=== PATIENT | female | born 1955 | race American Indian/Alaskan Native ===

== ENCOUNTER 2017-12-26 18:33 | Emergency (ER) | payer BC, OTHER ==
[2017-12-26 19:26] VITALS: BP 151/97
[2017-12-26] MEDS ORDERED: TORADOL IM ONE (21:30)
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
[2017-12-26] MEDS ORDERED: ULTRAM ONE (21:51)
[2017-12-26] MEDS ORDERED: ULTRAM PO ONE (21:54)
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
== END 2017-12-26 22:28 | disposition home or self-care (01) ==
LOC: ED 18:33
DX: S16.1XXA Strain of muscle, fascia and tendon at neck level, initial encounter (principal); I10 Essential (primary) hypertension; V87.7XXA Person injured in collision between other specified motor vehicles (traffic), initial encounter; Y93.89 Activity, other specified; Y92.89 Other specified places as the place of occurrence of the external cause; Y99.8 Other external cause status
CPT/HCPCS: 72040; 99283; J1885

== ENCOUNTER 2019-08-01 17:47 | Emergency (ER) | payer BC, OTHER ==
[2019-08-01 19:23] LABS: Basophils # (Auto) 0.1 K/mm3 (0.0-0.1); Eosinophils # (Auto) 0.1 K/mm3 (0.0-0.4); Eosinophils % (Auto) 1.6 % (0.0-4.3); Hematocrit 40.7 % (30.3-42.9); Hemoglobin 13.4 gm/dl (10.1-14.3); Lymphocytes % (Auto) 51.8 % (13.4-35.0); Mean Corpuscular HGB Conc 33 % (30-34); Mean Corpuscular Volume 91 fl (79-97); Monocytes # (Auto) 0.6 K/mm3 (0.0-0.8); Monocytes % (Auto) 9.8 % (0.0-7.3); Platelet Count 188 K/mm3 (140-440); Red Blood Count 4.48 M/mm3 (3.65-5.03); Red Cell Distribution Width 12.5 % (13.2-15.2)
[2019-08-01] MEDS ORDERED: SODIUM CHLORIDE 0.9% 1000 ML IV SOLN IV ONE (19:38)
[2019-08-01] MEDS ORDERED: INSULIN REGULAR, HUMAN 100 UNITS/1 ML IV ONE ×3 (19:38→23:18)
[2019-08-01 19:45] LABS: Albumin 4.2 g/dL (3.9-5); Calcium 9.7 mg/dL (8.4-10.2)
[2019-08-01] MEDS ORDERED: ACETAMINOPHEN 500 MG TAB PO ONE (20:34)
[2019-08-01] MEDS ORDERED: ACETAMINOPHEN 500 MG TAB ONE (20:37)
--- NOTE | 2019-08-01 20:44 | Emergency Department Report ---
ED General Adult HPI - General Chief complaint: Hyperglycemia Stated complaint: ELEV BS Time Seen by Provider: 08/01/19 19:28 Source: patient Mode of arrival: Ambulatory Limitations: No Limitations - History of Present Illness Initial comments: 64 y.o. female with no past medical history presents after going to her primary care doctor she states he has been having generalized weakness, polyuria and polydipsia. Patient states that while in her PCPs office her blood sugar was checked and was greater than 500. Patient denies any nausea vomiting. Patient denies any chest pain or shortness of breath. Patient denies any syncopal events. Severity scale (0 -10): 0 - Related Data Home Medications Medication Instructions Recorded Confirmed Last Taken Lisinopril/Hydrochlorothiazide 1 tab PO DAILY 05/25/16 05/25/16 Unknown Previous Rx's Medication Instructions Recorded Last Taken Type Famotidine [Pepcid] 20 mg PO BID #30 tablet 05/26/16 Unknown Rx levoFLOXacin [Levaquin TAB] 500 mg PO QDAY #5 tablet 05/26/16 Unknown Rx Cyclobenzaprine [Flexeril] 10 mg PO BID PRN #20 tablet 12/26/17 Unknown Rx Menthol/Camphor [[place] 1 applicatio TP TID PRN #1 tube 12/26/17 Unknown Rx Ointment] Naproxen [Naprosyn] 500 mg PO BID PRN #30 tablet 12/26/17 Unknown Rx Allergies Allergy/AdvReac Type Severity Reaction Status Date / Time No Known Allergies Allergy Verified 05/25/16 08:49 ED Review of Systems ROS: Stated complaint: ELEV BS Other details as noted in HPI Constitutional: weakness Eyes: denies: eye pain, eye discharge, vision change ENT: denies: ear pain, throat pain Respiratory: denies: cough, shortness of breath, wheezing Cardiovascular: denies: chest pain, palpitations Endocrine: increased thirst, increased urine Gastrointestinal: denies: abdominal pain, nausea, diarrhea Genitourinary: denies: urgency, dysuria, discharge Musculoskeletal: denies: back pain, joint swelling, arthralgia Skin: denies: rash, lesions Neurological: denies: headache, weakness, paresthesias Psychiatric: denies: anxiety, depression Hematological/Lymphatic: denies: easy bleeding, easy bruising ED Past Medical Hx - Past Medical History Hx Hypertension: Yes Hx Congestive Heart Failure: No Hx Diabetes: No Hx Arthritis: Yes Hx Asthma: No Hx COPD: No Hx HIV: No Additional medical history: Heart Murmur - Surgical History Additional Surgical History: Right knee - Social History Smoking Status: Never Smoker Substance Use Type: None - Medications Home Medications: Home Medications Medication Instructions Recorded Confirmed Last Taken Type Lisinopril/Hydrochlorothiazide 1 tab PO DAILY 05/25/16 05/25/16 Unknown History Famotidine [Pepcid] 20 mg PO BID #30 tablet 05/26/16 Unknown Rx levoFLOXacin [Levaquin TAB] 500 mg PO QDAY #5 tablet 05/26/16 Unknown Rx Cyclobenzaprine [Flexeril] 10 mg PO BID PRN #20 tablet 12/26/17 Unknown Rx Menthol/Camphor [[employer] [place] 1 applicatio TP TID PRN #1 tube 12/26/17 Unknown Rx Ointment] Naproxen [Naprosyn] 500 mg PO BID PRN #30 tablet 12/26/17 Unknown Rx ED Physical Exam - General Limitations: No Limitations General appearance: alert, in no apparent distress - Head Head exam: Present: atraumatic, normocephalic - Eye Eye exam: Present: normal appearance - ENT ENT exam: Present: mucous membranes moist - Neck Neck exam: Present: normal inspection - Respiratory Respiratory exam: Present: normal lung sounds bilaterally. Absent: respiratory distress - Cardiovascular Cardiovascular Exam: Present: regular rate, normal rhythm. Absent: systolic murmur, diastolic murmur, rubs, gallop - GI/Abdominal GI/Abdominal exam: Present: soft, normal bowel sounds - Extremities Exam Extremities exam: Present: normal inspection - Back Exam Back exam: Present: normal inspection - Neurological Exam Neurological exam: Present: alert, oriented X3 - Psychiatric Psychiatric exam: Present: normal affect, normal mood - Skin Skin exam: Present: warm, dry, intact, normal color. Absent: rash ED Course Vital Signs 08/01/19 08/01/19 08/01/19 18:31 19:30 19:43 Temperature 98.1 F 98.3 F Pulse Rate 79 68 73 Respiratory 16 15 18 Rate Blood Pressure 148/98 Blood Pressure 132/86 [Right] O2 Sat by Pulse 98 100 100 Oximetry 08/01/19 08/01/19 08/01/19 19:45 20:01 20:15 Temperature Pulse Rate 71 72 73 Respiratory 13 14 22 Rate Blood Pressure 153/95 142/94 142/94 Blood Pressure [Right] O2 Sat by Pulse 98 99 99 Oximetry ED Medical Decision Making - Lab Data Result diagrams: 08/01/19 18:41 08/01/19 18:41 - Medical Decision Making Patient received 2 L of IV fluids while here in emergency department in addition to 10 units of IV insulin. Patient currently is not in DKA however with a glucose of greater than 800 we will admit to the hospitalist service for continued management and treatment. - Differential Diagnosis DKA; Dehydration; Electrolyte Abnormality; Critical care attestation.: If time is entered above; I have spent that time in minutes in the direct care of this critically ill patient, excluding procedure time. ED Disposition Clinical Impression: Diabetes mellitus with hyperglycemia, New onset type 2 diabetes mellitus Disposition: OP ADMIT IP TO THIS HOSP Is pt being admited?: Yes Does the pt Need Aspirin: No Condition: Stable Instructions: Diabetes Mellitus Type 2 in Adults (ED) Time of Disposition: 20:44
[2019-08-01] MEDS ORDERED: SODIUM CHLORIDE 0.9% 1000 ML 1,000 ML IV ONE (21:07)
[2019-08-01] MEDS ORDERED: SODIUM CHLORIDE 0.9% 500 ML 500 ML IV ONE (23:18)
[2019-08-02 06:36] VITALS: BP 138/78
== END 2019-08-02 00:30 | disposition admitted as inpatient to this hospital (09) ==
LOC: ED 17:47
DX: E11.65 Type 2 diabetes mellitus with hyperglycemia (principal); R35.8 Other polyuria; R63.1 Polydipsia; I10 Essential (primary) hypertension; M19.90 Unspecified osteoarthritis, unspecified site; Z79.899 Other long term (current) drug therapy; Z98.890 Other specified postprocedural states
CPT/HCPCS: 36415; 80053; 82805; 82962; 85025; 96361; 96374; 96376; 99283; J7030; J7040; J1815

== ENCOUNTER 2021-03-21 11:34 | Observation (INO) | payer BC ==
[2021-03-21] MEDS ORDERED: NITROGLYCERIN 2% OINT 1 GM TP ONE (11:53)
[2021-03-21] MEDS ORDERED: ASPIRIN 325 MG TAB PO ONE (11:53)
--- NOTE | 2021-03-21 12:00 | Emergency Department Report ---
HPI - General Chief Complaint: Chest Pain Time Seen by Provider: 03/21/21 11:41 - HPI HPI: MSE 7 The patient is a 65-year-old female present with a chief complaint of chest pain. The patient states she was awakened this morning at 03: 00 with left-side d squeezing chest pain that radiated to her left upper extremity. Patient states the pain is been intermittent in nature. Patient denies nausea/vomiting or diaphoresis with the pain when asked if she felt short of breath with it she states she does not know. The patient states her last stress test occurred 5-10 years ago and she has never had a cardiac catheterization ED Past Medical Hx - Past Medical History Previous Medical History?: Yes Hx Hypertension: Yes Hx Arthritis: Yes Additional medical history: Heart Murmur - Surgical History Past Surgical History?: Yes Additional Surgical History: Right knee - Family History Family history: no significant - Social History Smoking Status: Never Smoker Substance Use Type: None - Medications Home Medications: Home Medications Medication Instructions Recorded Confirmed Last Taken Type Lansoprazole [Prevacid] 30 mg PO DAILY 03/21/21 03/21/21 03/20/21 09:00 History Losartan [Cozaar] 100 mg PO QDAY 03/21/21 03/21/21 03/20/21 08:00 History ED Review of Systems ROS: Stated complaint: CHEST PAIN AND BODYACHES Other details as noted in HPI Constitutional: denies: diaphoresis Eyes: denies: eye pain ENT: denies: throat pain Respiratory: shortness of breath (?) Cardiovascular: chest pain Endocrine: no symptoms reported Gastrointestinal: denies: nausea, vomiting Genitourinary: denies: dysuria Musculoskeletal: denies: back pain Neurological: denies: headache Physical Exam - Physical Exam Vital Signs: Vital Signs 03/21/21 11:36 Temperature 97.8 F Pulse Rate 75 Respiratory 16 Rate Blood Pressure 171/101 [Left] O2 Sat by Pulse 99 Oximetry Physical Exam: GENERAL: The patient is well-developed well-nourished female lying on stretcher not appearing to be in acute distress. [] HEENT: Normocephalic. Atraumatic. Extraocular motions are intact. Patient has moist mucous membranes. NECK: Supple. Trachea midline CHEST/LUNGS: Clear to auscultation. There is no respiratory distress noted. HEART/CARDIOVASCULAR: Regular. There is no tachycardia. There is no gallop rub or murmur. ABDOMEN: Abdomen is soft, nontender. Patient has normal bowel sounds. There is no abdominal distention. SKIN: There is no rash. There is no edema. There is no diaphoresis. NEURO: The patient is awake, alert, and oriented. The patient is cooperative. The patient has no focal neurologic deficits. The patient has normal speech. GCS 15 MUSCULOSKELETAL: There is no evidence of acute injury. ED Course Vital Signs 03/21/21 11:36 Temperature 97.8 F Pulse Rate 75 Respiratory 16 Rate Blood Pressure 171/101 [Left] O2 Sat by Pulse 99 Oximetry ED Medical Decision Making - Lab Data Result diagrams: 03/21/21 12:08 03/21/21 12:08 Laboratory Tests 03/21/21 03/21/21 12:08 12:08 WBC 4.6 RBC 4.41 Hgb 13.4 Hct 40.7 MCV 93 MCH 30 MCHC 33 RDW 12.8 L Plt Count 213 Lymph % (Auto) Flying Teacher Seg Neutrophils % Flying Teacher Sodium 137 Potassium 4.5 Chloride 101.2 Carbon Dioxide 24 Anion Gap 16 BUN 11 Creatinine 0.8 Estimated GFR > 60 BUN/Creatinine Ratio 14 Glucose 103 H Calcium 9.5 Total Creatine Kinase 155 H CK-MB (CK-2) 3.0 CK-MB (CK-2) Rel Index 1.9 Troponin T < 0.010 NT-Pro-B Natriuret Pep 101.1 - EKG Data -: EKG Interpreted by Me EKG shows normal: sinus rhythm, axis Rate: normal - EKG Data When compared to previous EKG there are: previous EKG unavailable Interpretation: other (No ischemic changes seen) - Radiology Data Radiology results: report reviewed (Chest x-ray), image reviewed (Chest x-ray) interpreted by me: Chest x-ray-no definite focal infiltrates, no pneumothorax [facility] [address] [place] [address] XRay Report Signed Patient: MICHAEL SERNA MR#: [id number] : 1955 Acct:[id number] Age/Sex: 65 / F ADM Date: 03/21/21 Loc: ED Attending Dr: Ordering Physician: NO SYKES MD Date of Service: 03/21/21 Procedure(s): XR chest routine 2V Accession Number(s): [id number] cc: NO SYKES MD Fluoro Time In Minutes: XR chest routine 2V INDICATION / CLINICAL INFORMATION: chest pain COMPARISON: May 25, 2016 FINDINGS: SUPPORT DEVICES: None. HEART / MEDIASTINUM: No significant abnormality. LUNGS / PLEURA: Lungs are clear. Costophrenic sulci are sharp. No pneumothorax. ADDITIONAL FINDINGS: No significant additional findings. IMPRESSION: 1. No acute findings. Signer Name: Lux Justin MD Signed: 03/21/2021 12:24 PM Workstation Name: [id number] Transcribed By: CS Dictated By: Lux Justin MD Electronically Authenticated By: Lux Justin MD Signed Date/Time: 03/21/211223 DD/ 23 TD /TT: Print - Differential Diagnosis ACS, pericarditis, GERD Critical care attestation.: If time is entered above; I have spent that time in minutes in the direct care of this critically ill patient, excluding procedure time. ED Disposition Clinical Impression: Chest pain Disposition: ADMITTED INPATIENT Is pt being admited?: Yes Does the pt Need Aspirin: Yes Condition: Stable Instructions: Nonspecific Chest Pain, Adult Time of Disposition: 13:37 (Hospitalist called (Dr. Reese)) Heart Score - HEART Score History: Highly suspicious EKG: Normal Age: 45-65 Risk factors: 1-2 risk factors Troponin: < normal limit HEART Score: 4 - EKG Read Time Time EKG Completed: 11:44 EKG Read Time: 11:52
--- NOTE | 2021-03-21 12:28 | XRay Report ---
XR chest routine 2V INDICATION / CLINICAL INFORMATION: chest pain COMPARISON: May 25, 2016 FINDINGS: SUPPORT DEVICES: None. HEART / MEDIASTINUM: No significant abnormality. LUNGS / PLEURA: Lungs are clear. Costophrenic sulci are sharp. No pneumothorax. ADDITIONAL FINDINGS: No significant additional findings. IMPRESSION: 1. No acute findings. Signer Name: Lux Justin MD Signed: 03/21/2021 12:24 PM Workstation Name: [id number]
[2021-03-21 13:16] LABS: Hematocrit 40.7 % (30.3-42.9); Hemoglobin 13.4 gm/dl (10.1-14.3); Mean Corpuscular HGB Conc 33 % (30-34); Mean Corpuscular Volume 93 fl (79-97); Platelet Count 213 K/mm3 (140-440); Red Blood Count 4.41 M/mm3 (3.65-5.03); Red Cell Distribution Width 12.8 % (13.2-15.2)
[2021-03-21 13:28] LABS: BUN/Creatinine Ratio 14; Blood Urea Nitrogen 11 mg/dL (7-17); Calcium 9.5 mg/dL (8.4-10.2); Hemolysis Index 121
[2021-03-21 19:29] LABS: Band Neutrophils # (Manual) 0.2 K/mm3; Platelet Estimate Consistent w Auto; Total Cells Counted 100
[2021-03-21] MEDS ORDERED: HYDROmorphone 1 MG/1 ML INJ IV PRN (20:31)
[2021-03-21] MEDS ORDERED: oxyCODONE /ACETAMINOPHEN 5-325MG TAB PO PRN (20:31)
[2021-03-21] MEDS ORDERED: ONDANSETRON 4 MG/2 ML INJ IV PRN (20:31)
--- NOTE | 2021-03-21 20:31 | History and Physical Report ---
History of Present Illness Date of examination: 03/21/21 Date of admission: 03/21/21 13:39 Chief complaint: Chest pain since a.m. History of present illness: 55-year-old female with history of hypertension, GERD and hyperlipidemia comes in for chest pain since 3 AM. Chest pain woke her up. Denies nausea vomiting or paralysis. No radiation of the chest pain. Chest pain is about 7 on a scale of 1-10 is intermittent. Patient states that he had a stress test about 10 years ago. But never had stents or cardiac catheterization. Patient lying comfortably during my examination. Answering questions appropriately. Good historian. No fever or chills. Patient is vaccinated against Covid. - Past Medical History Previous Medical History?: Yes --Hypertension: Yes --Arthritis: Yes --Additional medical history: Heart Murmur - Surgical History ==Past Surgical History?: Yes -- Right knee - Family History --no significant - Social History --Smoking Status: Never Smoker --Substance Use Type: None - Medications Home Medications: Home Medications Medication Instructions Recorded Confirmed Last Taken Type Lansoprazole [Prevacid] 30 mg PO DAILY 03/21/21 03/21/21 03/20/21 09:00 History Losartan [Cozaar] 100 mg PO QDAY 03/21/21 03/21/21 03/20/21 08:00 History Review of Systems ROS: Stated complaint: CHEST PAIN AND BODYACHES Other details as noted in HPI Constitutional: denies: diaphoresis Eyes: denies: eye pain ENT: denies: throat pain Respiratory: shortness of breath (?) Cardiovascular: chest pain Endocrine: no symptoms reported Gastrointestinal: denies: nausea, vomiting Genitourinary: denies: dysuria Musculoskeletal: denies: back pain Neurological: denies: headache Medications and Allergies Allergies Allergy/AdvReac Type Severity Reaction Status Date / Time No Known Allergies Allergy Verified 03/21/21 16:46 Home Medications Medication Instructions Recorded Confirmed Last Taken Type Lansoprazole [Prevacid] 30 mg PO DAILY 03/21/21 03/21/21 03/20/21 09:00 History Losartan [Cozaar] 100 mg PO QDAY 03/21/21 03/21/21 03/20/21 08:00 History Exam - Constitutional Vitals: Temp Pulse Resp BP Pulse Ox 98.3 F 98 H 13 150/80 98 03/21/21 12:57 03/21/21 16:42 03/21/21 14:30 03/21/21 14:30 03/21/21 14:30 General appearance: Present: no acute distress, well-nourished - EENT Eyes: Present: PERRL ENT: hearing intact, clear oral mucosa - Neck Neck: Present: supple, normal ROM - Respiratory Respiratory effort: normal Respiratory: bilateral: CTA - Cardiovascular Heart rate: 78 Rhythm: regular Heart Sounds: Present: S1 & S2. Absent: rub, click - Extremities Extremities: no ischemia, pulses intact, pulses symmetrical, No edema Peripheral Pulses: within normal limits - Abdominal General gastrointestinal: Present: soft, non-tender, non-distended, normal bowel sounds Female genitourinary: Present: normal - Rectal Rectal Exam: deferred - Integumentary Integumentary: Present: clear, warm, dry - Musculoskeletal Musculoskeletal: gait normal, strength equal bilaterally - Psychiatric Psychiatric: appropriate mood/affect, intact judgment & insight - Neurologic Neurologic: CNII-XII intact, moves all extremities - Allied Health Allied health notes reviewed: nursing, case management HEART Score - HEART Score History: Moderately suspicious EKG: Normal Age: 45-65 Risk factors: 1-2 risk factors Troponin: Troponin T < 0.010 ng/mL (0.00-0.029) 03/21/21 12:08 Troponin: < normal limit HEART Score: 3 - Critical Actions Critical Actions: 0-3 pts:0.9-1.7%risk of adverse cardiac event.Candidate for discharge Results - Labs CBC & Chem 7: 03/22/21 05:21 03/21/21 12:08 Labs: Laboratory Last Values WBC 4.6 K/mm3 (4.5-11.0) 03/21/21 12:08 RBC 4.41 M/mm3 (3.65-5.03) 03/21/21 12:08 Hgb 13.4 gm/dl (10.1-14.3) 03/21/21 12:08 Hct 40.7 % (30.3-42.9) 03/21/21 12:08 MCV 93 fl (79-97) 03/21/21 12:08 MCH 30 pg (28-32) 03/21/21 12:08 MCHC 33 % (30-34) 03/21/21 12:08 RDW 12.8 % (13.2-15.2) L 03/21/21 12:08 Plt Count 213 K/mm3 (140-440) 03/21/21 12:08 Lymph % (Auto) Adjunct Lecturer 03/21/21 12:08 Add Manual Diff Complete 03/21/21 12:08 Total Counted 100 03/21/21 12:08 Seg Neutrophils % Adjunct Lecturer 03/21/21 12:08 Seg Neuts % (Manual) 89.0 % (40.0-70.0) H 03/21/21 12:08 Band Neutrophils % 4.0 % 03/21/21 12:08 Lymphocytes % (Manual) 2.0 % (13.4-35.0) L 03/21/21 12:08 Reactive Lymphs % (Man) 1.0 % 03/21/21 12:08 Monocytes % (Manual) 3.0 % (0.0-7.3) 03/21/21 12:08 Eosinophils % (Manual) 1.0 % (0.0-4.3) 03/21/21 12:08 Nucleated RBC % Not Reportable 03/21/21 12:08 Seg Neutrophils # Man 4.1 K/mm3 (1.8-7.7) 03/21/21 12:08 Band Neutrophils # 0.2 K/mm3 03/21/21 12:08 Lymphocytes # (Manual) 0.1 K/mm3 (1.2-5.4) L 03/21/21 12:08 Abs React Lymphs (Man) 0.0 K/mm3 03/21/21 12:08 Monocytes # (Manual) 0.1 K/mm3 (0.0-0.8) 03/21/21 12:08 Eosinophils # (Manual) 0.0 K/mm3 (0.0-0.4) 03/21/21 12:08 Basophils # (Manual) 0.0 K/mm3 (0.0-0.1) 03/21/21 12:08 Metamyelocytes # 0.0 K/mm3 03/21/21 12:08 Myelocytes # 0.0 K/mm3 03/21/21 12:08 Promyelocytes # 0.0 K/mm3 03/21/21 12:08 Blast Cells # 0.0 K/mm3 03/21/21 12:08 WBC Morphology Not Reportable 03/21/21 12:08 Hypersegmented Neuts Not Reportable 03/21/21 12:08 Hyposegmented Neuts Not Reportable 03/21/21 12:08 Hypogranular Neuts Not Reportable 03/21/21 12:08 Smudge Cells Not Reportable 03/21/21 12:08 Toxic Granulation Not Reportable 03/21/21 12:08 Toxic Vacuolation Not Reportable 03/21/21 12:08 Dohle Bodies Not Reportable 03/21/21 12:08 Pelger-Huet Anomaly Not Reportable 03/21/21 12:08 Dylan Rods Not Reportable 03/21/21 12:08 Platelet Estimate Consistent w auto 03/21/21 12:08 Clumped Platelets Not Reportable 03/21/21 12:08 Plt Clumps, EDTA Not Reportable 03/21/21 12:08 Large Platelets Not Reportable 03/21/21 12:08 Giant Platelets Not Reportable 03/21/21 12:08 Platelet Satelliting Not Reportable 03/21/21 12:08 Plt Morphology Comment Not Reportable 03/21/21 12:08 RBC Morphology Not Reportable 03/21/21 12:08 Dimorphic RBCs Not Reportable 03/21/21 12:08 Polychromasia Not Reportable 03/21/21 12:08 Hypochromasia Not Reportable 03/21/21 12:08 Poikilocytosis Not Reportable 03/21/21 12:08 Anisocytosis Not Reportable 03/21/21 12:08 Microcytosis Not Reportable 03/21/21 12:08 Macrocytosis Not Reportable 03/21/21 12:08 Spherocytes Not Reportable 03/21/21 12:08 Pappenheimer Bodies Not Reportable 03/21/21 12:08 Sickle Cells Not Reportable 03/21/21 12:08 Target Cells Not Reportable 03/21/21 12:08 Tear Drop Cells Not Reportable 03/21/21 12:08 Ovalocytes Not Reportable 03/21/21 12:08 Helmet Cells Not Reportable 03/21/21 12:08 [place] Bodies Not Reportable 03/21/21 12:08 [place] Rings Not Reportable 03/21/21 12:08 [place] Cells Not Reportable 03/21/21 12:08 Bite Cells Not Reportable 03/21/21 12:08 Crenated Cell Not Reportable 03/21/21 12:08 Elliptocytes Not Reportable 03/21/21 12:08 Acanthocytes (Spur) Not Reportable 03/21/21 12:08 Rouleaux Not Reportable 03/21/21 12:08 Hemoglobin C Crystals Not Reportable 03/21/21 12:08 Schistocytes Not Reportable 03/21/21 12:08 Malaria parasites Not Reportable 03/21/21 12:08 [place] Bodies Not Reportable 03/21/21 12:08 Hem Pathologist Commnt No 03/21/21 12:08 Sodium 137 mmol/L (137-145) 03/21/21 12:08 Potassium 4.5 mmol/L (3.6-5.0) 03/21/21 12:08 Chloride 101.2 mmol/L (98-107) 03/21/21 12:08 Carbon Dioxide 24 mmol/L (22-30) 03/21/21 12:08 Anion Gap 16 mmol/L 03/21/21 12:08 BUN 11 mg/dL (7-17) 03/21/21 12:08 Creatinine 0.8 mg/dL (0.6-1.2) 03/21/21 12:08 Estimated GFR > 60 ml/min 03/21/21 12:08 BUN/Creatinine Ratio 14 % 03/21/21 12:08 Glucose 103 mg/dL (65-100) H 03/21/21 12:08 Calcium 9.5 mg/dL (8.4-10.2) 03/21/21 12:08 Total Creatine Kinase 155 units/L (30-135) H 03/21/21 12:08 CK-MB (CK-2) 3.0 ng/mL (0.0-4.0) 03/21/21 12:08 CK-MB (CK-2) Rel Index 1.9 (0-4) 03/21/21 12:08 Troponin T < 0.010 ng/mL (0.00-0.029) 03/21/21 12:08 NT-Pro-B Natriuret Pep 101.1 pg/mL (0-900) 03/21/21 12:08 Short CBC 03/21/21 03/22/21 Range/Units 12:08 05:21 WBC 4.6 4.3 L (4.5-11.0) K/mm3 Hgb 13.4 13.4 (10.1-14.3) gm/dl Hct 40.7 39.9 (30.3-42.9) % Plt Count 213 176 (140-440) K/mm3 BMP 03/21/21 12:08 Sodium 137 Potassium 4.5 Chloride 101.2 Carbon Dioxide 24 BUN 11 Creatinine 0.8 Glucose 103 H Calcium 9.5 Cardiac Enzymes 03/21/21 03/21/21 03/22/21 Range/Units 12:08 20:47 05:21 Total Creatine Kinase 155 H 112 94 (30-135) units/L CK-MB (CK-2) 3.0 2.7 2.2 (0.0-4.0) ng/mL Troponin T < 0.010 < 0.010 < 0.010 (0.00-0.029) ng/mL - Imaging and Cardiology EKG: report reviewed (Sinus rhythm no acute ST-T wave changes) Chest x-ray: report reviewed (No acute findings) Assessment and Plan Advance Directives: Yes (Full code) VTE prophylaxis?: Chemical Plan of care discussed with patient/family: Yes - Patient Problems (1) Acute coronary syndrome Current Visit: Yes Status: Acute Plan to address problem: Serial troponins and CK-MBs If negative and cleared by cardiology patient can be discharged tomorrow Stress test as outpatient next week Check cardiology consult and discuss with cardiology (2) Hypertension Current Visit: Yes Status: Chronic Qualifiers: Hypertension type: primary hypertension Qualified Code(s): I10 - Essential (primary) hypertension Plan to address problem: Continue antihypertensives in the form of losartan 100 mg once a day and adjust medications as necessary (3) GERD (gastroesophageal reflux disease) Current Visit: Yes Status: Chronic Qualifiers: Esophagitis presence: without esophagitis Qualified Code(s): K21.9 - Gastro -esophageal reflux disease without esophagitis Plan to address problem: Patient on PPIs (4) Hyperlipidemia Current Visit: Yes Status: Chronic Qualifiers: Hyperlipidemia type: mixed hyperlipidemia Qualified Code(s): E78.2 - Mixed hyperlipidemia Plan to address problem: Patient is on statins-on Lipitor 10 mg once a day Continue the same (5) DVT prophylaxis Current Visit: Yes Status: Acute Plan to address problem: On heparin and GI prophylaxis
[2021-03-21] MEDS ORDERED: NON-FORMULARY EACH (Losartan [Cozaar] 100 MG Tablet) PO SCH (20:45)
[2021-03-21] MEDS ORDERED: LANSOPRAZOLE 30 MG PO SCH (20:45)
[2021-03-21 21:19] LABS: Creatine Kinase MB 2.7 ng/mL (0.0-4.0)
[2021-03-21] MEDS ORDERED: FAMOTIDINE 20 MG/2 ML INJ IV SCH (22:00)
[2021-03-21] MEDS: HEPARIN 5,000 UNIT/1 ML VIAL SUB-Q SCH (22:08)
[2021-03-21] MEDS: LOSARTAN 50 MG TAB PO SCH (22:08)
[2021-03-22] MEDS: ACETAMINOPHEN 325 MG TAB PO PRN ×2 (00:48→12:04)
[2021-03-22] MEDS: SODIUM CHLORIDE 0.9% 1000 ML 1,000 ML IV SCH ×2 (01:22→21:53)
[2021-03-22 05:50] LABS: Hematocrit 39.9 % (30.3-42.9); Hemoglobin 13.4 gm/dl (10.1-14.3); Mean Corpuscular HGB Conc 34 % (30-34); Mean Corpuscular Volume 94 fl (79-97); Platelet Count 176 K/mm3 (140-440); Red Blood Count 4.27 M/mm3 (3.65-5.03); Red Cell Distribution Width 12.4 % (13.2-15.2)
[2021-03-22 06:13] LABS: Creatine Kinase MB 2.2 ng/mL (0.0-4.0)
[2021-03-22 06:56] LABS: Alanine Aminotransferase 33 units/L (7-56); Blood Urea Nitrogen 15 mg/dL (7-17); Calcium 9.1 mg/dL (8.4-10.2); Hemolysis Index 11
[2021-03-22 06:59] LABS: BUN/Creatinine Ratio 21
[2021-03-22 08:51] LABS: Total Cells Counted 100
[2021-03-22 08:52] LABS: RBC Morphology Normal
[2021-03-22 09:24] LABS: Creatine Kinase MB 2.2 ng/mL (0.0-4.0)
[2021-03-22] MEDS: HEPARIN 5,000 UNIT/1 ML VIAL SUB-Q SCH ×2 (09:44→21:40)
[2021-03-22] MEDS: LOSARTAN 50 MG TAB PO SCH (09:44)
[2021-03-22] MEDS: PANTOPRAZOLE 40 MG TAB PO SCH (09:44)
--- NOTE | 2021-03-22 10:23 | Consultation ---
History of Present Illness Consult date: 03/22/21 Consult reason: chest pain History of present illness: 65-year-old woman with a history of hypertension and gastroesophageal reflux disease, admitted for further evaluation of chest pain. There is no prior cardiac history. Her hypertension is managed with losartan, but she states that her blood pressures in the outpatient setting have been routinely elevated on this medication, and on this presentation systolic blood pressures have persistently remained in the 170s. She describes left-sided, crampy chest pain which woke her up from sleep, no associated symptoms. There was no exertional chest pain, no shortness of breath, no palpitations. 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 In the emergency room, her ECG was sinus rhythm, with left ventricle hypertrophy by voltage criteria, poor R wave progression, no acute ST or T wave changes. The ECG is unchanged from a previous ECG of 2016. Chest x-ray revealed a normal-sized cardiac silhouette and clear lungs. Serial troponin levels x3 were normal. Past History Past Medical History: GERD, hypertension Medications and Allergies Allergies Allergy/AdvReac Type Severity Reaction Status Date / Time No Known Allergies Allergy Verified 03/21/21 16:46 Home Medications Medication Instructions Recorded Confirmed Last Taken Type Lansoprazole [Prevacid] 30 mg PO DAILY 03/21/21 03/21/21 03/20/21 09:00 History Losartan [Cozaar] 100 mg PO QDAY 03/21/21 03/21/21 03/20/21 08:00 History Active Meds: Active Medications Acetaminophen (Acetaminophen 325 Mg Tab) 650 mg PO Q4H PRN PRN Reason: Pain MILD(1-3)/Fever >100.5/MONTES Last Admin: 03/22/21 00:48 Dose: 650 mg Documented by: Heparin Sodium (Porcine) (Heparin 5,000 Unit/1 Ml Vial) 5,000 unit SUB-Q Q12HR YADIRA Last Admin: 03/22/21 09:44 Dose: 5,000 unit Documented by: Hydromorphone HCl (Hydromorphone 1 Mg/1 Ml Inj) 0.5 mg IV Q3H PRN PRN Reason: Pain , Severe (7-10) Sodium Chloride (Nacl 0.9% 1000 Ml) 1,000 mls @ 75 mls/hr IV DIRECT YADIRA Last Admin: 03/22/21 01:22 Dose: 75 mls/hr Documented by: Losartan Potassium (Losartan 50 Mg Tab) 100 mg PO QDAY [facility] Last Admin: 03/22/21 09:44 Dose: 100 mg Documented by: Ondansetron HCl (Ondansetron 4 Mg/2 Ml Inj) 4 mg IV Q8H PRN PRN Reason: Nausea And Vomiting Oxycodone/Acetaminophen (Oxycodone /Acetaminophen 5-325mg Tab) 1 tab PO Q6H PRN PRN Reason: Pain, Moderate (4-6) Pantoprazole Sodium (Pantoprazole 40 Mg Tab) 40 mg PO DAILY [facility] Last Admin: 03/22/21 09:44 Dose: 40 mg Documented by: Sodium Chloride (Sodium Chloride 0.9% 10 Ml Flush Syringe) 10 ml IV BID [facility] Last Admin: 03/22/21 09:45 Dose: 10 ml Documented by: Sodium Chloride (Sodium Chloride 0.9% 10 Ml Flush Syringe) 10 ml IV PRN PRN PRN Reason: LINE FLUSH Review of Systems Cardiovascular: chest pain, no orthopnea, no palpitations, no rapid/irregular heart beat, no edema, no syncope, no lightheadedness, no shortness of breath Physical Examination Vital Signs Temp Pulse Resp BP Pulse Ox 97.8 F 75 16 171/101 99 03/21/21 11:36 03/21/21 11:36 03/21/21 11:36 03/21/21 11:36 03/21/21 11:36 General appearance: no acute distress HEENT: Positive: PERRL Neck: Positive: neck supple Cardiac: Positive: Reg Rate and Rhythm Lungs: Positive: clear to auscultation Neuro: Positive: Grossly Intact Abdomen: Positive: Soft Female genitourinary: deferred Skin: Positive: Clear Extremities: Absent: edema Results 03/22/21 05:21 03/22/21 05:21 Cardiac Enzymes 03/21/21 03/21/21 03/22/21 Range/Units 12:08 20:47 05:21 AST (5-40) units/L CK-MB (CK-2) 3.0 2.7 2.2 (0.0-4.0) ng/mL 03/22/21 03/22/21 Range/Units 05:21 08:34 AST 31 (5-40) units/L CK-MB (CK-2) 2.2 (0.0-4.0) ng/mL CBC 03/21/21 03/22/21 Range/Units 12:08 05:21 WBC 4.6 4.3 L (4.5-11.0) K/mm3 RBC 4.41 4.27 (3.65-5.03) M/mm3 Hgb 13.4 13.4 (10.1-14.3) gm/dl Hct 40.7 39.9 (30.3-42.9) % Plt Count 213 176 (140-440) K/mm3 Comprehensive Metabolic Panel 03/21/21 03/22/21 Range/Units 12: 05:21 Sodium 137 138 (137-145) mmol/L Potassium 4.5 3.8 (3.6-5.0) mmol/L Chloride 101.2 100.8 (98-107) mmol/L Carbon Dioxide 24 24 (22-30) mmol/L BUN 11 15 (7-17) mg/dL Creatinine 0.8 0.7 (0.6-1.2) mg/dL Glucose 103 H 184 H (65-100) mg/dL Calcium 9.5 9.1 (8.4-10.2) mg/dL AST 31 (5-40) units/L ALT 33 (7-56) units/L Alkaline Phosphatase 126 (35-129) units/L Total Protein 7.4 (6.3-8.2) g/dL Albumin 4.0 (3.9-5) g/dL EKG interpretations - Telemetry EKG Rhythm: Sinus Rhythm Assessment and Plan - Patient Problems (1) Chest pain Current Visit: Yes Status: Acute Plan to address problem: Patient presents with atypical chest pain, ECG shows no acute changes, serial troponin levels are negative. We will order a predischarge exercise thallium s tress test after we optimize blood pressure control. (2) Uncontrolled hypertension Current Visit: Yes Status: Acute Plan to address problem: Patient is on losartan 100 mg with suboptimal blood pressure control, I will add Procardia XL and hydrochlorothiazide to blood pressure regimen.
--- NOTE | 2021-03-22 11:18 | Progress Note ---
Assessment and Plan Assessment and plan: 55-year-old female with history of hypertension, GERD and hyperlipidemia comes in for chest pain since 3 AM. #Acute coronary syndrome -S/p ASA 325 mg and nitroglycerin in the ED -EKG significant for sinus tachycardia -Serial troponins negative x4 -Cardiology consulted; appreciate recs -Planning for possible stress test on Wednesday (03/24/2021) if blood pressure is controlled -Continue to monitor #Hypertensionuncontrolled Continue home antihypertensive losartan 100 mg daily -Starting nifedipine 60 mg daily and HCTZ 25 mg daily for better blood pressure management -Continue to monitor #GERD without esophagitis -Continue home pantoprazole #Hyperlipidemia -Continue home atorvastatin 10 mg daily #DVT prophylaxis Continue subcutaneous heparin 5000 units every 8 hours Disposition Plan: Pending inpatient stress test on 03/24/2021 Total Time Spent with Patient (Minutes): 30 History Interval history: No acute events overnight. Hospitalist Physical - Constitutional Vitals: Temp Pulse Resp BP Pulse Ox 97.5 F L 57 L 18 178/94 100 03/22/21 08:07 03/22/21 08:07 03/22/21 08:07 03/22/21 09:44 03/22/21 08:23 General appearance: Present: no acute distress, well-nourished - EENT Eyes: Present: PERRL, EOM intact ENT: hearing intact, clear oral mucosa, dentition normal - Neck Neck: Present: supple, normal ROM - Respiratory Respiratory effort: normal - Cardiovascular Rhythm: regular Heart Sounds: Present: S1 & S2 - Extremities Extremities: no ischemia, pulses intact, pulses symmetrical, No edema, normal temperature, normal color Peripheral Pulses: within normal limits - Abdominal General gastrointestinal: soft, non-tender, non-distended, normal bowel sounds - Integumentary Integumentary: Present: clear, warm, dry - Psychiatric Psychiatric: appropriate mood/affect, intact judgment & insight, memory intact, cooperative - Neurologic Neurologic: CNII-XII intact, moves all extremities - Allied Health Allied health notes reviewed: nursing HEART Score - HEART Score EKG: Normal Age: 45-65 Risk factors: 1-2 risk factors Troponin: Troponin T < 0.010 ng/mL (0.00-0.029) 03/22/21 08:34 Troponin: < normal limit - Critical Actions Critical Actions: 0-3 pts:0.9-1.7%risk of adverse cardiac event.Candidate for discharge Results - Labs CBC & Chem 7: 03/22/21 05:21 03/22/21 05:21 Labs: Laboratory Last Values WBC 4.3 K/mm3 (4.5-11.0) L 03/22/21 05:21 RBC 4.27 M/mm3 (3.65-5.03) 03/22/21 05:21 Hgb 13.4 gm/dl (10.1-14.3) 03/22/21 05:21 Hct 39.9 % (30.3-42.9) 03/22/21 05:21 MCV 94 fl (79-97) 03/22/21 05:21 MCH 31 pg (28-32) 03/22/21 05:21 MCHC 34 % (30-34) 03/22/21 05:21 RDW 12.4 % (13.2-15.2) L 03/22/21 05:21 Plt Count 176 K/mm3 (140-440) 03/22/21 05:21 Lymph % (Auto) Leasing Associate 03/22/21 05:21 Add Manual Diff Complete 03/22/21 05:21 Total Counted 100 03/22/21 05:21 Seg Neutrophils % Leasing Associate 03/22/21 05:21 Seg Neuts % (Manual) 17.0 % (40.0-70.0) L 03/22/21 05:21 Band Neutrophils % 4.0 % 03/21/21 12:08 Lymphocytes % (Manual) 63.0 % (13.4-35.0) H 03/22/21 05:21 Reactive Lymphs % (Man) 5.0 % 03/22/21 05:21 Monocytes % (Manual) 15.0 % (0.0-7.3) H 03/22/21 05:21 Eosinophils % (Manual) 1.0 % (0.0-4.3) 03/21/21 12:08 Nucleated RBC % Not Reportable 03/22/21 05:21 Seg Neutrophils # Man 0.7 K/mm3 (1.8-7.7) L 03/22/21 05:21 Band Neutrophils # 0.0 K/mm3 03/22/21 05:21 Lymphocytes # (Manual) 2.7 K/mm3 (1.2-5.4) 03/22/21 05:21 Abs React Lymphs (Man) 0.2 K/mm3 03/22/21 05:21 Monocytes # (Manual) 0.6 K/mm3 (0.0-0.8) 03/22/21 05:21 Eosinophils # (Manual) 0.0 K/mm3 (0.0-0.4) 03/22/21 05:21 Basophils # (Manual) 0.0 K/mm3 (0.0-0.1) 03/22/21 05:21 Metamyelocytes # 0.0 K/mm3 03/22/21 05:21 Myelocytes # 0.0 K/mm3 03/22/21 05:21 Promyelocytes # 0.0 K/mm3 03/22/21 05:21 Blast Cells # 0.0 K/mm3 03/22/21 05:21 WBC Morphology Not Reportable 03/22/21 05:21 Hypersegmented Neuts Not Reportable 03/22/21 05:21 Hyposegmented Neuts Not Reportable 03/22/21 05:21 Hypogranular Neuts Not Reportable 03/22/21 05:21 Smudge Cells Not Reportable 03/22/21 05:21 Toxic Granulation Not Reportable 03/22/21 05:21 Toxic Vacuolation Not Reportable 03/22/21 05:21 Dohle Bodies Not Reportable 03/22/21 05:21 Pelger-Huet Anomaly Not Reportable 03/22/21 05:21 Dylan Rods Not Reportable 03/22/21 05:21 Platelet Estimate Not Reportable 03/22/21 05:21 Clumped Platelets Not Reportable 03/22/21 05:21 Plt Clumps, EDTA Not Reportable 03/22/21 05:21 Large Platelets Not Reportable 03/22/21 05:21 Giant Platelets Not Reportable 03/22/21 05:21 Platelet Satelliting Not Reportable 03/22/21 05:21 Plt Morphology Comment Not Reportable 03/22/21 05:21 RBC Morphology Normal 03/22/21 05:21 Dimorphic RBCs Not Reportable 03/22/21 05:21 Polychromasia Not Reportable 03/22/21 05:21 Hypochromasia Not Reportable 03/22/21 05:21 Poikilocytosis Not Reportable 03/22/21 05:21 Anisocytosis Not Reportable 03/22/21 05:21 Microcytosis Not Reportable 03/22/21 05:21 Macrocytosis Not Reportable 03/22/21 05:21 Spherocytes Not Reportable 03/22/21 05:21 Pappenheimer Bodies Not Reportable 03/22/21 05:21 Sickle Cells Not Reportable 03/22/21 05:21 Target Cells Not Reportable 03/22/21 05:21 Tear Drop Cells Not Reportable 03/22/21 05:21 Ovalocytes Not Reportable 03/22/21 05:21 Helmet Cells Not Reportable 03/22/21 05:21 [place] Bodies Not Reportable 03/22/21 05:21 [place] Rings Not Reportable 03/22/21 05:21 [place] Cells Not Reportable 03/22/21 05:21 Bite Cells Not Reportable 03/22/21 05:21 Crenated Cell Not Reportable 03/22/21 05:21 Elliptocytes Not Reportable 03/22/21 05:21 Acanthocytes (Spur) Not Reportable 03/22/21 05:21 Rouleaux Not Reportable 03/22/21 05:21 Hemoglobin C Crystals Not Reportable 03/22/21 05:21 Schistocytes Not Reportable 03/22/21 05:21 Malaria parasites Not Reportable 03/22/21 05:21 [place] Bodies Not Reportable 03/22/21 05:21 Hem Pathologist Commnt No 03/22/21 05:21 Sodium 138 mmol/L (137-145) 03/22/21 05:21 Potassium 3.8 mmol/L (3.6-5.0) 03/22/21 05:21 Chloride 100.8 mmol/L (98-107) 03/22/21 05:21 Carbon Dioxide 24 mmol/L (22-30) 03/22/21 05:21 Anion Gap 17 mmol/L 03/22/21 05:21 BUN 15 mg/dL (7-17) 03/22/21 05:21 Creatinine 0.7 mg/dL (0.6-1.2) 03/22/21 05:21 Estimated GFR > 60 ml/min 03/22/21 05:21 BUN/Creatinine Ratio 21 % 03/22/21 05:21 Glucose 184 mg/dL (65-100) H 03/22/21 05:21 Calcium 9.1 mg/dL (8.4-10.2) 03/22/21 05:21 Total Bilirubin 0.40 mg/dL (0.1-1.2) 03/22/21 05:21 AST 31 units/L (5-40) 03/22/21 05:21 ALT 33 units/L (7-56) 03/22/21 05:21 Alkaline Phosphatase 126 units/L (35-129) 03/22/21 05:21 Total Creatine Kinase 151 units/L (30-135) H 03/22/21 08:34 CK-MB (CK-2) 2.2 ng/mL (0.0-4.0) 03/22/21 08:34 CK-MB (CK-2) Rel Index 1.4 (0-4) 03/22/21 08:34 Troponin T < 0.010 ng/mL (0.00-0.029) 03/22/21 08:34 NT-Pro-B Natriuret Pep 101.1 pg/mL (0-900) 03/21/21 12:08 Total Protein 7.4 g/dL (6.3-8.2) 03/22/21 05:21 Albumin 4.0 g/dL (3.9-5) 03/22/21 05:21 Albumin/Globulin Ratio 1.2 % 03/22/21 05:21 [place]/IV: Voiding Method Toilet Active Medications - Current Medications Current Medications: Generic Name Dose Route Start Last Admin Trade Name Freq PRN Reason Stop Dose Admin Acetaminophen 650 mg 03/21/21 20:31 03/22/21 00:48 Acetaminophen 325 Mg Tab PO 650 mg Q4H PRN Administration Pain MILD(1-3)/Fever >100.5/MONTES Aspirin 81 mg 03/22/21 11:00 Aspirin Ec 81 Mg Tab PO QDAY YADIRA Heparin Sodium (Porcine) 5,000 unit 03/21/21 22:00 03/22/21 09:44 Heparin 5,000 Unit/1 Ml Vial SUB-Q 5,000 unit Q12HR YADIRA Administration Hydrochlorothiazide 25 mg 03/22/21 11:00 Hydrochlorothiazide 25 Mg Tab PO QDAY YADIRA Hydromorphone HCl 0.5 mg 03/21/21 20:31 Hydromorphone 1 Mg/1 Ml Inj IV Q3H PRN Pain , Severe (7-10) Sodium Chloride 1,000 mls @ 75 mls/hr 03/21/21 20:45 03/22/21 01:22 Nacl 0.9% 1000 Ml IV 75 mls/hr DIRECT YADIRA Administration Losartan Potassium 100 mg 03/21/21 21:00 03/22/21 09:44 Losartan 50 Mg Tab PO 100 mg QDAY YADIRA Administration Nifedipine 60 mg 03/22/21 11:00 Nifedipine Xl 60 Mg Tab PO QDAY YADIRA Ondansetron HCl 4 mg 03/21/21 20:31 Ondansetron 4 Mg/2 Ml Inj IV Q8H PRN Nausea And Vomiting Oxycodone/Acetaminophen 1 tab 03/21/21 20:31 Oxycodone /Acetaminophen 5-325mg Tab PO Q6H PRN Pain, Moderate (4-6) Pantoprazole Sodium 40 mg 03/22/21 10:00 03/22/21 09:44 Pantoprazole 40 Mg Tab PO 40 mg DAILY YADIRA Administration Sodium Chloride 10 ml 03/21/21 22:00 03/22/21 09:45 Sodium Chloride 0.9% 10 Ml Flush Syringe IV 10 ml BID YADIRA Administration Sodium Chloride 10 ml 03/21/21 20:31 Sodium Chloride 0.9% 10 Ml Flush Syringe IV PRN PRN LINE FLUSH
[2021-03-22] MEDS: NIFEdipine XL 60 MG TAB PO SCH (12:03)
[2021-03-22] MEDS: hydroCHLOROthiazide 25 MG TAB PO SCH (12:04)
[2021-03-22] MEDS: ASPIRIN EC 81 MG TAB PO SCH (12:05)
[2021-03-23 05:59] LABS: Hematocrit 44.5 % (30.3-42.9); Hemoglobin 14.9 gm/dl (10.1-14.3); Mean Corpuscular HGB Conc 34 % (30-34); Mean Corpuscular Volume 93 fl (79-97); Platelet Count 203 K/mm3 (140-440); Red Blood Count 4.79 M/mm3 (3.65-5.03); Red Cell Distribution Width 12.5 % (13.2-15.2)
[2021-03-23 06:17] LABS: Blood Urea Nitrogen 12 mg/dL (7-17); Calcium 9.9 mg/dL (8.4-10.2); Hemolysis Index 11
[2021-03-23 06:26] LABS: BUN/Creatinine Ratio 17
[2021-03-23] MEDS: LOSARTAN 50 MG TAB PO SCH (09:37)
[2021-03-23] MEDS: ASPIRIN EC 81 MG TAB PO SCH (09:37)
[2021-03-23] MEDS: hydroCHLOROthiazide 25 MG TAB PO SCH (09:37)
[2021-03-23] MEDS: HEPARIN 5,000 UNIT/1 ML VIAL SUB-Q SCH ×2 (09:38→22:21)
[2021-03-23] MEDS: PANTOPRAZOLE 40 MG TAB PO SCH (09:38)
[2021-03-23] MEDS: NIFEdipine XL 60 MG TAB PO SCH (09:38)
--- NOTE | 2021-03-23 10:49 | Progress Note ---
Assessment and Plan - Patient Problems (1) Chest pain Current Visit: Yes Status: Acute Plan to address problem: Patient is awaiting exercise thallium stress test to be done tomorrow morning. (2) Uncontrolled hypertension Current Visit: Yes Status: Acute Plan to address problem: Blood pressure control is much improved with the addition of Procardia XL 60 mg and hydrochlorothiazide 25 mg. Subjective Date of service: 03/23/21 Interval history: Patient is comfortable, no cardiac complaints, no further chest pain. Objective Vital Signs Temp Pulse Resp BP Pulse Ox 03/23/21 08:00 97.0 F L 72 18 149/87 98 03/23/21 04:27 97.5 F L 74 16 141/93 100 03/23/21 00:08 100 03/22/21 23:36 97.6 F 70 18 137/83 98 03/22/21 19:56 98.4 F 83 20 117/74 99 03/22/21 17:54 98.0 F 83 18 148/108 99 - Physical Examination HEENT: Positive: PERRL Neck: Positive: neck supple Cardiac: Positive: Reg Rate and Rhythm Lungs: Positive: clear to auscultation Neuro: Positive: Grossly Intact Abdomen: Positive: Soft Skin: Positive: Clear Extremities: Absent: edema - Labs and Meds CBC 03/23/21 Range/Units 05:39 WBC 4.4 L (4.5-11.0) K/mm3 RBC 4.79 (3.65-5.03) M/mm3 Hgb 14.9 H (10.1-14.3) gm/dl Hct 44.5 H (30.3-42.9) % Plt Count 203 (140-440) K/mm3 Comprehensive Metabolic Panel 03/23/21 Range/Units 05:39 Sodium 139 (137-145) mmol/L Potassium 3.8 (3.6-5.0) mmol/L Chloride 101.7 (98-107) mmol/L Carbon Dioxide 25 (22-30) mmol/L BUN 12 (7-17) mg/dL Creatinine 0.7 (0.6-1.2) mg/dL Glucose 155 H (65-100) mg/dL Calcium 9.9 (8.4-10.2) mg/dL - Imaging and Cardiology EKG: report reviewed (Sinus rhythm no acute ST-T wave changes)
[2021-03-23 11:52] LABS: Giant Platelets Rare; Platelet Estimate Consistent w Auto; RBC Morphology Normal; Total Cells Counted 100
--- NOTE | 2021-03-23 15:19 | Progress Note ---
Assessment and Plan Assessment and plan: 55-year-old female with history of hypertension, GERD and hyperlipidemia comes in for chest pain since 3 AM. #Acute coronary syndrome -S/p ASA 325 mg and nitroglycerin in the ED -EKG significant for sinus tachycardia -Serial troponins negative x4 -Cardiology consulted; appreciate recs -Planning for possible stress test on Wednesday (03/24/2021) if blood pressure is controlled. N.p.o. at midnight -Continue to monitor #Hypertensioncontrolled Continue home antihypertensive losartan 100 mg daily -Continue nifedipine 60 mg daily and HCTZ 25 mg daily for better blood pressure management -Continue to monitor #GERD without esophagitis -Continue home pantoprazole #Hyperlipidemia -Continue home atorvastatin 10 mg daily #DVT prophylaxis Continue subcutaneous heparin 5000 units every 8 hours Disposition Plan: Pending stress test in the morning Total Time Spent with Patient (Minutes): 25 History Interval history: No acute events over night. The patient denies fevers, chills, nausea, vomiting, abdominal pain, chest pain/pressure, shortness of breath, urinary symptoms, weakness, or confusion. Hospitalist Physical - Constitutional Vitals: Temp Pulse Resp BP Pulse Ox 97.0 F L 72 18 149/87 100 03/23/21 08:00 03/23/21 08:00 03/23/21 08:00 03/23/21 08:00 03/23/21 11:47 General appearance: Present: no acute distress, well-nourished - EENT Eyes: Present: PERRL, EOM intact ENT: hearing intact, clear oral mucosa, dentition normal - Neck Neck: Present: supple, normal ROM - Respiratory Respiratory effort: normal - Cardiovascular Rhythm: regular Heart Sounds: Present: S1 & S2 - Extremities Extremities: no ischemia, pulses intact, pulses symmetrical, No edema, normal temperature, normal color Peripheral Pulses: within normal limits - Abdominal General gastrointestinal: soft, non-tender, non-distended, normal bowel sounds - Integumentary Integumentary: Present: clear, warm, dry - Psychiatric Psychiatric: appropriate mood/affect, intact judgment & insight, memory intact, cooperative - Neurologic Neurologic: CNII-XII intact, moves all extremities - Allied Health Allied health notes reviewed: nursing HEART Score - HEART Score EKG: Normal Age: 45-65 Risk factors: 1-2 risk factors Troponin: Troponin T < 0.010 ng/mL (0.00-0.029) 03/22/21 08:34 Troponin: < normal limit - Critical Actions Critical Actions: 0-3 pts:0.9-1.7%risk of adverse cardiac event.Candidate for discharge Results - Labs CBC & Chem 7: 03/23/21 05:39 03/23/21 05:39 Labs: Laboratory Last Values WBC 4.4 K/mm3 (4.5-11.0) L 03/23/21 05:39 RBC 4.79 M/mm3 (3.65-5.03) 03/23/21 05:39 Hgb 14.9 gm/dl (10.1-14.3) H 03/23/21 05:39 Hct 44.5 % (30.3-42.9) H 03/23/21 05:39 MCV 93 fl (79-97) 03/23/21 05:39 MCH 31 pg (28-32) 03/23/21 05:39 MCHC 34 % (30-34) 03/23/21 05:39 RDW 12.5 % (13.2-15.2) L 03/23/21 05:39 Plt Count 203 K/mm3 (140-440) 03/23/21 05:39 Lymph % (Auto) Hourly Caregiver 03/22/21 05:21 Add Manual Diff Complete 03/23/21 05:39 Total Counted 100 03/23/21 05:39 Seg Neutrophils % Hourly Caregiver 03/23/21 05:39 Seg Neuts % (Manual) 35.0 % (40.0-70.0) L 03/23/21 05:39 Band Neutrophils % 1.0 % 03/23/21 05:39 Lymphocytes % (Manual) 57.0 % (13.4-35.0) H 03/23/21 05:39 Reactive Lymphs % (Man) 5.0 % 03/22/21 05:21 Monocytes % (Manual) 7.0 % (0.0-7.3) 03/23/21 05:39 Eosinophils % (Manual) 1.0 % (0.0-4.3) 03/21/21 12:08 Nucleated RBC % Not Reportable 03/23/21 05:39 Seg Neutrophils # Man 1.5 K/mm3 (1.8-7.7) L 03/23/21 05:39 Band Neutrophils # 0.0 K/mm3 03/23/21 05:39 Lymphocytes # (Manual) 2.5 K/mm3 (1.2-5.4) 03/23/21 05:39 Abs React Lymphs (Man) 0.0 K/mm3 03/23/21 05:39 Monocytes # (Manual) 0.3 K/mm3 (0.0-0.8) 03/23/21 05:39 Eosinophils # (Manual) 0.0 K/mm3 (0.0-0.4) 03/23/21 05:39 Basophils # (Manual) 0.0 K/mm3 (0.0-0.1) 03/23/21 05:39 Metamyelocytes # 0.0 K/mm3 03/23/21 05:39 Myelocytes # 0.0 K/mm3 03/23/21 05:39 Promyelocytes # 0.0 K/mm3 03/23/21 05:39 Blast Cells # 0.0 K/mm3 03/23/21 05:39 WBC Morphology Not Reportable 03/23/21 05:39 Hypersegmented Neuts Not Reportable 03/23/21 05:39 Hyposegmented Neuts Not Reportable 03/23/21 05:39 Hypogranular Neuts Not Reportable 03/23/21 05:39 Smudge Cells Not Reportable 03/23/21 05:39 Toxic Granulation Not Reportable 03/23/21 05:39 Toxic Vacuolation Not Reportable 03/23/21 05:39 Dohle Bodies Not Reportable 03/23/21 05:39 Pelger-Huet Anomaly Not Reportable 03/23/21 05:39 Dylan Rods Not Reportable 03/23/21 05:39 Platelet Estimate Consistent w auto 03/23/21 05:39 Clumped Platelets Not Reportable 03/23/21 05:39 Plt Clumps, EDTA Not Reportable 03/23/21 05:39 Large Platelets Not Reportable 03/23/21 05:39 Giant Platelets Rare 03/23/21 05:39 Platelet Satelliting Not Reportable 03/23/21 05:39 Plt Morphology Comment Not Reportable 03/23/21 05:39 RBC Morphology Normal 03/23/21 05:39 Dimorphic RBCs Not Reportable 03/23/21 05:39 Polychromasia Not Reportable 03/23/21 05:39 Hypochromasia Not Reportable 03/23/21 05:39 Poikilocytosis Not Reportable 03/23/21 05:39 Anisocytosis Not Reportable 03/23/21 05:39 Microcytosis Not Reportable 03/23/21 05:39 Macrocytosis Not Reportable 03/23/21 05:39 Spherocytes Not Reportable 03/23/21 05:39 Pappenheimer Bodies Not Reportable 03/23/21 05:39 Sickle Cells Not Reportable 03/23/21 05:39 Target Cells Not Reportable 03/23/21 05:39 Tear Drop Cells Not Reportable 03/23/21 05:39 Ovalocytes Not Reportable 03/23/21 05:39 Helmet Cells Not Reportable 03/23/21 05:39 Yoon-Sorento Bodies Not Reportable 03/23/21 05:39 Burket Rings Not Reportable 03/23/21 05:39 [place] Cells Not Reportable 03/23/21 05:39 Bite Cells Not Reportable 03/23/21 05:39 Crenated Cell Not Reportable 03/23/21 05:39 Elliptocytes Not Reportable 03/23/21 05:39 Acanthocytes (Spur) Not Reportable 03/23/21 05:39 Rouleaux Not Reportable 03/23/21 05:39 Hemoglobin C Crystals Not Reportable 03/23/21 05:39 Schistocytes Not Reportable 03/23/21 05:39 Malaria parasites Not Reportable 03/23/21 05:39 Elkin Bodies Not Reportable 03/23/21 05:39 Hem Pathologist Commnt No 03/23/21 05:39 Sodium 139 mmol/L (137-145) 03/23/21 05:39 Potassium 3.8 mmol/L (3.6-5.0) 03/23/21 05:39 Chloride 101.7 mmol/L (98-107) 03/23/21 05:39 Carbon Dioxide 25 mmol/L (22-30) 03/23/21 05:39 Anion Gap 16 mmol/L 03/23/21 05:39 BUN 12 mg/dL (7-17) 03/23/21 05:39 Creatinine 0.7 mg/dL (0.6-1.2) 03/23/21 05:39 Estimated GFR > 60 ml/min 03/23/21 05:39 BUN/Creatinine Ratio 17 % 03/23/21 05:39 Glucose 155 mg/dL (65-100) H 03/23/21 05:39 Calcium 9.9 mg/dL (8.4-10.2) 03/23/21 05:39 Phosphorus 3.00 mg/dL (2.5-4.5) 03/23/21 05:39 Magnesium 2.10 mg/dL (1.7-2.3) 03/23/21 05:39 Total Bilirubin 0.40 mg/dL (0.1-1.2) 03/22/21 05:21 AST 31 units/L (5-40) 03/22/21 05:21 ALT 33 units/L (7-56) 03/22/21 05:21 Alkaline Phosphatase 126 units/L (35-129) 03/22/21 05:21 Total Creatine Kinase 151 units/L (30-135) H 03/22/21 08:34 CK-MB (CK-2) 2.2 ng/mL (0.0-4.0) 03/22/21 08:34 CK-MB (CK-2) Rel Index 1.4 (0-4) 03/22/21 08:34 Troponin T < 0.010 ng/mL (0.00-0.029) 03/22/21 08:34 NT-Pro-B Natriuret Pep 101.1 pg/mL (0-900) 03/21/21 12:08 Total Protein 7.4 g/dL (6.3-8.2) 03/22/21 05:21 Albumin 4.0 g/dL (3.9-5) 03/22/21 05:21 Albumin/Globulin Ratio 1.2 % 03/22/21 05:21 [place]/IV: Voiding Method Toilet Active Medications - Current Medications Current Medications: Generic Name Dose Route Start Last Admin Trade Name Freq PRN Reason Stop Dose Admin Acetaminophen 650 mg 03/21/21 20:31 03/22/21 12:04 Acetaminophen 325 Mg Tab PO 650 mg Q4H PRN Administration Pain MILD(1-3)/Fever >100.5/MONTES Aspirin 81 mg 03/22/21 11:00 10/10/21 09:37 Aspirin Ec 81 Mg Tab PO 81 mg QDAY YADIRA Administration Heparin Sodium (Porcine) 5,000 unit 03/21/21 22:00 03/23/21 09:38 Heparin 5,000 Unit/1 Ml Vial SUB-Q 5,000 unit Q12HR YADIRA Administration Hydrochlorothiazide 25 mg 03/22/21 11:00 03/23/21 09:37 Hydrochlorothiazide 25 Mg Tab PO 25 mg QDAY YADIRA Administration Hydromorphone HCl 0.5 mg 03/21/21 20:31 Hydromorphone 1 Mg/1 Ml Inj IV Q3H PRN Pain , Severe (7-10) Sodium Chloride 1,000 mls @ 75 mls/hr 03/21/21 20:45 03/22/21 21:53 Nacl 0.9% 1000 Ml IV 75 mls/hr DIRECT YADIRA Administration Losartan Potassium 100 mg 03/21/21 21:00 03/23/21 09:37 Losartan 50 Mg Tab PO 100 mg QDAY YADIRA Administration Nifedipine 60 mg 03/22/21 11:00 03/23/21 09:38 Nifedipine Xl 60 Mg Tab PO 60 mg QDAY YADIRA Administration Ondansetron HCl 4 mg 03/21/21 20:31 Ondansetron 4 Mg/2 Ml Inj IV Q8H PRN Nausea And Vomiting Oxycodone/Acetaminophen 1 tab 03/21/21 20:31 Oxycodone /Acetaminophen 5-325mg Tab PO Q6H PRN Pain, Moderate (4-6) Pantoprazole Sodium 40 mg 03/22/21 10:00 03/23/21 09:38 Pantoprazole 40 Mg Tab PO 40 mg DAILY YADIRA Administration Sodium Chloride 10 ml 03/21/21 22:00 03/23/21 09:38 Sodium Chloride 0.9% 10 Ml Flush Syringe IV 10 ml BID YADIRA Administration Sodium Chloride 10 ml 03/21/21 20:31 Sodium Chloride 0.9% 10 Ml Flush Syringe IV PRN PRN LINE FLUSH
[2021-03-23] MEDS: SODIUM CHLORIDE 0.9% 1000 ML 1,000 ML IV SCH (18:17)
[2021-03-24 06:12] LABS: Hematocrit 44.6 % (30.3-42.9); Mean Corpuscular HGB Conc 34 % (30-34); Mean Corpuscular Volume 93 fl (79-97); Platelet Count 218 K/mm3 (140-440); Red Cell Distribution Width 12.5 % (13.2-15.2)
[2021-03-24 06:21] LABS: INR 0.99 (0.87-1.13)
[2021-03-24 06:29] LABS: BUN/Creatinine Ratio 14; Blood Urea Nitrogen 11 mg/dL (7-17); Calcium 9.7 mg/dL (8.4-10.2); Hemolysis Index 5
[2021-03-24] MEDS ORDERED: REGADENOSON 0.4 MG/5 ML INJ IV ONE (07:00)
[2021-03-24] MEDS: HEPARIN 5,000 UNIT/1 ML VIAL SUB-Q SCH (10:34)
--- NOTE | 2021-03-24 10:49 | Electrocardiograph Report ---
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
[2021-03-24 11:00] LABS: Band Neutrophils # (Manual) 0.2 K/mm3; Total Cells Counted 100
[2021-03-24 11:01] LABS: Platelet Estimate Consistent w Auto; RBC Morphology Normal
--- NOTE | 2021-03-24 11:48 | Event Note ---
Date: 03/24/21 Patient underwent exercise stress test today, completed nearly 8 minutes of a Osmani protocol, no chest pain and no ST changes of ischemia. Myocardial perfusion images are pending for final test interpretation.
--- NOTE | 2021-03-24 12:20 | Nuclear Medicine Report ---
APPROVED REPORT Exam: Nuclear Stress Test Indication: Chest pain BMI: 0 Stress Test Details HR Max Heart Rate (APMHR): 157 bpm Target HR (85% APMHR): 133 bpm BP ECG Resting ECG: Sinus Rhythm Stress ECG: Sinus Tachycardia ST Change: None Arrhythmia: None Recovery ECG: Sinus Rhythm Recovery ST Change: None Recovery Arrhythmia: None Clinical Reason for Termination: Fatigue Stress Symptoms: None Exercise duration: 7 min 57 sec Exercise capacity: 9 METs Overall Exercise Capacity for Age: Superior Stress ECG Conclusion Very good exercise capacity. No chest pain, no ST changes and no dysrhythmias with exercise. NM EXAM: Myocardial Perfusion REST/STRESS Imaging Protocol: Rest Tc-99m/Stress Tc-99m 1 day Resting Data Rest SPECT myocardial perfusion imaging was performed in supine position 45 minutes following the intravenous injection of 10 mCi of Tc-99m Myoview. Time of rest injection: 0930 Exercise Stress At peak stress, the patient was injected intravenously with 28mCi of Tc-99m Myoview. Time of stress injection: 1040 Gated Stress SPECT was performed 30 minutes after stress injection. The images were gated to evaluate regional wall motion and calculate left ventricular ejection fraction. Study Quality Study: excellent Lung Uptake: Normal Study Data TID = 1.35. Perfusion Wall Motion The rest and stress images show normal left ventricular wall motion. Nuclear Conclusion ECG Findings: negative for ischemia Clinical Findings: negative for ischemia Nuclear Findings: negative for ischemia Exercise Capacity: normal Left Ventricular Function: normal Risk Study: low Normal rest and stress myocardial perfusion images, normal left ventricular systolic function with ejection fraction 65%. Normal study. Conclusion Very good exercise capacity. No chest pain, no ST changes and no dysrhythmias with exercise.
[2021-03-24 13:07] VITALS: BP 138/86
--- NOTE | 2021-03-24 15:58 | Discharge Summary ---
Providers - Providers Date of Admission: 03/21/21 13:39 Date of discharge: 03/24/21 Attending physician: NALDO TREVINO MD 03/21/21 20:35 Consult to Physician [CONS] Routine Comment: Consulting Provider: ALLEY GOTTLIEB Physician Instructions: Reason For Exam: Acute coronary syndrome Primary care physician: MILL SUPERVISOR Hospitalization Condition: Stable Pertinent studies: Reviewed Procedures: Stress test Hospital course: The patient is a 55-year-old female with past medical history of hypertension, GERD, and hyperlipidemia who presented for acute presentation of chest pain. The patient was evaluated in the emergency room and was given ASA 325 mg and nitroglycerin for symptomatic relief. The patient's serial troponins were negative x4. Cardiology was consulted upon presentation. The patient underwent stress test on 03/24/2021 which was negative. Patient's blood pressure medications were titrated to include losartan 100 mg daily, nifedipine 60 mg daily and hydrochlorothiazide 25 mg daily. Patient can be discharged home safely. Patient expressed understanding. Disposition: 01 HOME / SELF CARE / HOMELESS Final Discharge Diagnosis (Prints w/discharge instructions): Chest pain of unknown etiology Time spent for discharge: 30 min Core Measure Documentation - Palliative Care Palliative Care/ Comfort Measures: Not Applicable - Core Measures Any of the following diagnoses?: none - VTE Discharge Requirements Deep Vein Thrombosis/Pulmonary Embolism Present on Admission: No Has pt received <5 days of overlap therapy or INR<2.0: No (Not indicated) Anticoagulant overlap therapy prescribed at discharge: No Contraindication No Overlap Therapy order at DC: Not Indicated - Acute NE Discharge Requirements Aspirin at discharge: No Reason for no aspirin on DC: Medical contraindication (Not indicated) ISABEL/ARB for LVSD if EF <40%: Yes Beta sade at discharge: Yes Statin for LDL = or >100 mg/dl on DC: Yes - Heart Failure Discharge Requirements ISABEL/ARB for LVSD if EF <40%: Yes Beta sade at discharge: Yes - Stroke Discharge Requirements Statin for LDL = or >70 mg/dl on DC: Not Applicable Reason for no statin on DC: Not Indicated Anticoag for atrial fib/atrial flutter: Not Applicable Reason for no anticoag for AF/F on DC: Not Indicated Antithrombotic for ischemic stroke: No Reason for no antithrombotic on DC: Not Indicated Exam - Constitutional Vitals: Temp Pulse Resp BP Pulse Ox 97.8 F 73 18 138/86 100 03/24/21 08:53 03/24/21 08:53 03/24/21 08:53 03/24/21 10:43 03/24/21 08:53 General appearance: Present: no acute distress, well-nourished - EENT Eyes: Present: PERRL, EOM intact ENT: hearing intact, clear oral mucosa, dentition normal - Neck Neck: Present: supple, normal ROM - Respiratory Respiratory effort: normal - Cardiovascular Rhythm: regular Heart Sounds: Present: S1 & S2 - Extremities Extremities: no ischemia, pulses intact, pulses symmetrical, No edema, normal temperature, normal color Peripheral Pulses: within normal limits - Abdominal General gastrointestinal: Present: soft, non-tender, non-distended, normal bowel sounds Female genitourinary: Present: deferred - Rectal Rectal Exam: deferred - Integumentary Integumentary: Present: clear, warm, dry - Musculoskeletal Musculoskeletal: strength equal bilaterally - Psychiatric Psychiatric: appropriate mood/affect, intact judgment & insight, memory intact, cooperative - Neurologic Neurologic: CNII-XII intact, moves all extremities - Allied Health Allied health notes reviewed: nursing Plan Health Concerns: The patient should return back to the emergency room if any of the following occurs: Chest pain/pressure, shortness of breath, worsening abdominal pain, inability to tolerate oral intake, inability to produce urine, weakness, or confusion. Assessment: Patient discharging home. Follow up with: PRIMARY CARE, [Primary Care Provider] - 3-5 Days Prescriptions: hydroCHLOROthiazide [HCTZ] 25 mg PO QDAY #30 tablet Irbesartan 75 mg PO DAILY #30 tablet NIFEdipine XL [Procardia Xl] 60 mg PO QDAY #30 tablet Pantoprazole [Protonix TAB] 40 mg PO DAILY #30 tablet
[2021-03-24] MEDS: hydroCHLOROthiazide 25 MG TAB PO SCH (16:43)
[2021-03-24] MEDS: NIFEdipine XL 60 MG TAB PO SCH (16:44)
[2021-03-24] MEDS: PANTOPRAZOLE 40 MG TAB PO SCH (16:44)
[2021-03-24] MEDS: ASPIRIN EC 81 MG TAB PO SCH (16:44)
[2021-03-24] MEDS: LOSARTAN 50 MG TAB PO SCH (16:44)
== END 2021-03-24 19:30 | disposition home or self-care (01) ==
LOC: ED 11:34 → 4A 13:39
PROVIDERS: ADMIT Internal Medicine; ATTEND Student in an Organized Health Care Education/Training Program
DX: I24.9 Acute ischemic heart disease, unspecified (principal); I10 Essential (primary) hypertension; K21.9 Gastro-esophageal reflux disease without esophagitis; E78.5 Hyperlipidemia, unspecified; M19.90 Unspecified osteoarthritis, unspecified site; R01.1 Cardiac murmur, unspecified; Z79.899 Other long term (current) drug therapy; Z98.890 Other specified postprocedural states
CPT/HCPCS: 36415; 71046; 78452; 80048; 80053; 82550; 82553; 83735; 83880; 84100; 84484; 85025; 85610; 93005; 93017; 96361; 96372; 96374; 99285; A9502; G0378; J1644; J7030; 85007

== ENCOUNTER 2021-11-16 06:32 | Emergency (ER) | payer BC ==
--- NOTE | 2021-11-16 07:52 | Emergency Department Report ---
ED General Adult HPI - General Chief complaint: Upper Respiratory Infection Stated complaint: SHORTNESS OF BREATH/WEAKNESS PUI?: Yes Time Seen by Provider: 11/16/21 07:37 Source: patient, RN notes reviewed, old records reviewed Mode of arrival: Ambulatory Limitations: No Limitations - History of Present Illness Initial comments: The patient was evaluated in the emergency department for symptoms described in the history of present illness. He/she was evaluated in the context of the global COVID-19 pandemic, which necessitated consideration that the patient might be at risk for infection with the virus that causes COVID-19. Institutional protocols and algorithms that pertain to the evaluation of patients at risk for COVID-19 are in a state of rapid change based on information released by regulatory bodies including the CDC and federal and state organizations. These policies and algorithms were followed during the danny cannon's care in the emergency department. Please note that these policies, procedures and recommendations changed on a rapid basis. During the entire history and physical examination, I had on complete personal protective equipment. This patient is a 66-year-old female who has her COVID-19 vaccination series but not booster, with a history of hypertension and high cholesterol, who presents to the department today with a complaint of 1 week shortness of breath, malaise and fatigue which is painless. Positive loss of taste and smell. Reports multiple negative outpatient COVID test and influenza test. Denies dysuria. Denies chest pain. Denies hematemesis and bright red blood per rectum. She is not a diabetic as far she knows -: days(s) Consistency: constant Improves with: rest Worsens with: movement - Related Data Previous Rx's Medication Instructions Recorded Last Taken Type Irbesartan 75 mg PO DAILY #30 tablet 03/24/21 Unknown Rx NIFEdipine XL [Procardia Xl] 60 mg PO QDAY #30 tablet 03/24/21 Unknown Rx Pantoprazole [Protonix TAB] 40 mg PO DAILY #30 tablet 03/24/21 Unknown Rx hydroCHLOROthiazide [HCTZ] 25 mg PO QDAY #30 tablet 03/24/21 Unknown Rx Allergies Allergy/AdvReac Type Severity Reaction Status Date / Time No Known Allergies Allergy Verified 03/21/21 16:46 ED Review of Systems ROS: Stated complaint: SHORTNESS OF BREATH/WEAKNESS Other details as noted in HPI Constitutional: malaise. denies: fever Eyes: denies: eye discharge ENT: congestion Respiratory: shortness of breath. denies: cough Cardiovascular: denies: chest pain Gastrointestinal: denies: abdominal pain, nausea, vomiting, diarrhea Genitourinary: denies: dysuria Musculoskeletal: myalgia Neurological: weakness Hematological/Lymphatic: denies: easy bleeding ED Past Medical Hx - Past Medical History Hx Hypertension: Yes Hx Congestive Heart Failure: No Hx Diabetes: No Hx Arthritis: Yes Hx Asthma: No Hx COPD: No Hx HIV: No Additional medical history: Heart Murmur - Surgical History Additional Surgical History: Right knee - Social History Smoking Status: Never Smoker - Medications Home Medications: Home Medications Medication Instructions Recorded Confirmed Last Taken Type Irbesartan 75 mg PO DAILY #30 tablet 03/24/21 Unknown Rx NIFEdipine XL [Procardia Xl] 60 mg PO QDAY #30 tablet 03/24/21 Unknown Rx Pantoprazole [Protonix TAB] 40 mg PO DAILY #30 tablet 03/24/21 Unknown Rx hydroCHLOROthiazide [HCTZ] 25 mg PO QDAY #30 tablet 03/24/21 Unknown Rx ED Physical Exam - General Limitations: No Limitations General appearance: alert, in no apparent distress - Head Head exam: Present: atraumatic, normocephalic - Eye Eye exam: Present: normal appearance, EOMI. Absent: nystagmus - ENT ENT exam: Present: normal exam, normal orophraynx, mucous membranes dry, normal external ear exam - Neck Neck exam: Present: normal inspection, full ROM. Absent: tenderness, meningismus - Respiratory Respiratory exam: Present: normal lung sounds bilaterally. Absent: respiratory distress, wheezes, rales, rhonchi, stridor, decreased breath sounds - Cardiovascular Cardiovascular Exam: Present: regular rate, normal rhythm, normal heart sounds. Absent: bradycardia, tachycardia, irregular rhythm, systolic murmur, diastolic murmur, rubs, gallop - GI/Abdominal GI/Abdominal exam: Present: soft. Absent: distended, tenderness, guarding, rebound, rigid, pulsatile mass - Extremities Exam Extremities exam: Present: normal inspection, full ROM, other (2+ pulses noted in the bilateral upper and lower extremities. There is no palpable cord. negative Homans sign. Muscular compartments are soft. The pelvis is stable.). Absent: pedal edema, calf tenderness - Back Exam Back exam: Present: normal inspection. Absent: tenderness, CVA tenderness (R), CVA tenderness (L), paraspinal tenderness, vertebral tenderness - Neurological Exam Neurological exam: Present: alert, oriented X3, normal gait, other (No facial droop. Tongue midline. Extraocular movements intact bilaterally. Facial sensation intact to light touch in V1, V2, V3 distribution bilaterally. 5 and a 5 strength in 4 extremities. Sensation intact to light touch in 4 extremities.). Absent: motor sensory deficit - Psychiatric Psychiatric exam: Present: normal affect, normal mood - Skin Skin exam: Present: warm, dry, intact, normal color. Absent: rash ED Course Vital Signs 11/16/21 11/16/21 11/16/21 06:48 08:14 08:15 Temperature 97.8 F Pulse Rate 104 H 85 84 Respiratory 18 26 H 26 H Rate Blood Pressure 105/75 136/90 O2 Sat by Pulse 100 100 99 Oximetry O2 Sat by Pulse Oximetry [ Digit-Finger] 11/16/21 11/16/21 11/16/21 08:31 08:45 09:01 Temperature Pulse Rate 72 77 85 Respiratory 26 H 26 H 22 Rate Blood Pressure 112/83 112/83 112/83 O2 Sat by Pulse 100 100 96 Oximetry O2 Sat by Pulse Oximetry [ Digit-Finger] 11/16/21 11/16/21 11/16/21 09:15 09:31 09:45 Temperature Pulse Rate 71 80 77 Respiratory 24 13 18 Rate Blood Pressure 112/83 112/83 112/83 O2 Sat by Pulse 100 99 99 Oximetry O2 Sat by Pulse Oximetry [ Digit-Finger] 11/16/21 11/16/21 10:01 13:01 Temperature Pulse Rate 93 H Respiratory 31 H Rate Blood Pressure 112/83 O2 Sat by Pulse 86 Oximetry O2 Sat by Pulse 99 Oximetry [ Digit-Finger] - Reevaluation(s) Reevaluation #1: 11/16/21 10:42 Differential diagnosis, including but not limited to: Pneumonia, COVID-19, anemia, thyroid derangement, electrolyte derangement, hyperglycemia, diabetes, dehydration Assessment and plan: 66-year-old female, who is afebrile, with reassuring vital signs, with resolved tachycardia, who is not hypoxic, clear lungs, unremarkable chest x-ray, EKG unchanged from prior, found to have mild dehydration, and hyperglycemia. Patient is likely an undiagnosed diabetic. We will give her IV fluids, and repeat basic metabolic panel. I discussed this with the patient. She is agreeable to the plan of care. EKG unchanged from prior, troponin negative x1, symptoms present for 1 week. Acute myocardial infa rction is ruled out. Do not suspect acute coronary syndrome at this time. Suspect COVID-19, and or symptomatic hypoglycemia, with dehydration. 11/16/21 10:45 O2 sat 86%, respiratory rate 31 documented in error. These are not correct 11/16/21 12:59 Glucose is improved. Resting comfortably in stretcher. Laboratory studies overdue. On the phone with lab now, have requested clinical nurse educator come by to obtain laboratory studies, which were times to be drawn at 1145. Please note that this delay in acquisition of laboratory studies has resulted in a delay in disposition. 11/16/21 13:32 Repeat laboratory studies show improvement in dehydration and hyperglycemia. I discussed this with the patient. I also discussed diet and lifestyle modifications. I did offer patient discharged with metformin, versus discharge with diet and lifestyle modifications. Irrespective of whether or not patient starts metformin, she will need to engage in diet and lifestyle modifications. Patient prefers to pursue diet lifestyle modifications and not take metformin. She reports that she is reliable to do so . I think that this is reasonable. Even if this patient has COVID, she is not hypoxic. She is suitable for discharge at this point time with outpatient management. Return precautions are reviewed. All questions answered - Pulse Oximetry Interpretation Digit-Finger Initial Pulse Oximetry Readin O2 Sat by Pulse Oximetry: 99 Actions Taken: none ED Medical Decision Making - Lab Data Result diagrams: 11/16/21 08:45 11/16/21 12:30 Vital Signs 11/16/21 11/16/21 11/16/21 06:48 08:14 08:15 Temperature 97.8 F Pulse Rate 104 H 85 84 Respiratory 18 26 H 26 H Rate Blood Pressure 105/75 136/90 O2 Sat by Pulse 100 100 99 Oximetry 11/16/21 11/16/21 11/16/21 08:31 08:45 09:01 Temperature Pulse Rate 72 77 85 Respiratory 26 H 26 H 22 Rate Blood Pressure 112/83 112/83 112/83 O2 Sat by Pulse 100 100 96 Oximetry 11/16/21 11/16/21 11/16/21 09:15 09:31 09:45 Temperature Pulse Rate 71 80 77 Respiratory 24 13 18 Rate Blood Pressure 112/83 112/83 112/83 O2 Sat by Pulse 100 99 99 Oximetry 11/16/21 10:01 Temperature Pulse Rate 93 H Respiratory 31 H Rate Blood Pressure 112/83 O2 Sat by Pulse 86 Oximetry Lab Results 11/16/21 11/16/21 11/16/21 Range/Units 08:45 08:45 08:45 WBC 4.9 (4.5-11.0) K/mm3 RBC 4.79 (3.65-5.03) M/mm3 Hgb 14.3 (10.1-14.3) gm/dl Hct 42.3 (30.3-42.9) % MCV 88 (79-97) fl MCH 30 (28-32) pg MCHC 34 (30-34) % RDW 12.2 L (13.2-15.2) % Plt Count 202 (140-440) K/mm3 Lymph % (Auto) 30.8 (13.4-35.0) % [place] % (Auto) 10.2 H (0.0-7.3) % Eos % (Auto) 0.0 (0.0-4.3) % Baso % (Auto) 2.6 H (0.0-1.8) % Lymph # (Auto) 1.5 (1.2-5.4) K/mm3 [place] # (Auto) 0.5 (0.0-0.8) K/mm3 Eos # (Auto) 0.0 (0.0-0.4) K/mm3 Baso # (Auto) 0.1 (0.0-0.1) K/mm3 Seg Neutrophils % 56.4 (40.0-70.0) % Seg Neutrophils # 2.8 (1.8-7.7) K/mm3 PT 13.4 (12.2-14.9) Sec. INR 0.92 (0.87-1.13) Sodium 132 L (137-145) mmol/L Potassium 3.9 (3.6-5.0) mmol/L Chloride 86.4 L (98-107) mmol/L Carbon Dioxide 29 (22-30) mmol/L Anion Gap 21 mmol/L BUN 24 H (7-17) mg/dL Creatinine 1.6 H (0.6-1.2) mg/dL Estimated GFR 39 ml/min BUN/Creatinine Ratio 15 % Glucose 461 H (65-100) mg/dL Calcium 10.9 H (8.4-10.2) mg/dL Magnesium 2.20 (1.7-2.3) mg/dL Total Bilirubin 1.00 (0.1-1.2) mg/dL AST 32 (5-40) units/L ALT 47 (7-56) units/L Alkaline Phosphatase 103 (35-129) units/L Total Creatine Kinase 59 (30-135) units/L Troponin T < 0.010 (0.00-0.029) ng/mL Total Protein 9.1 H (6.3-8.2) g/dL Albumin 4.6 (3.9-5) g/dL Albumin/Globulin Ratio 1.0 % TSH (0.270-4.200) mlU/mL 11/16/21 Range/Units 08:45 WBC (4.5-11.0) K/mm3 RBC (3.65-5.03) M/mm3 Hgb (10.1-14.3) gm/dl Hct (30.3-42.9) % MCV (79-97) fl MCH (28-32) pg MCHC (30-34) % RDW (13.2-15.2) % Plt Count (140-440) K/mm3 Lymph % (Auto) (13.4-35.0) % [place] % (Auto) (0.0-7.3) % Eos % (Auto) (0.0-4.3) % Baso % (Auto) (0.0-1.8) % Lymph # (Auto) (1.2-5.4) K/mm3 [place] # (Auto) (0.0-0.8) K/mm3 Eos # (Auto) (0.0-0.4) K/mm3 Baso # (Auto) (0.0-0.1) K/mm3 Seg Neutrophils % (40.0-70.0) % Seg Neutrophils # (1.8-7.7) K/mm3 PT (12.2-14.9) Sec. INR (0.87-1.13) Sodium (137-145) mmol/L Potassium (3.6-5.0) mmol/L Chloride (98-107) mmol/L Carbon Dioxide (22-30) mmol/L Anion Gap mmol/L BUN (7-17) mg/dL Creatinine (0.6-1.2) mg/dL Estimated GFR ml/min BUN/Creatinine Ratio % Glucose (65-100) mg/dL Calcium (8.4-10.2) mg/dL Magnesium (1.7-2.3) mg/dL Total Bilirubin (0.1-1.2) mg/dL AST (5-40) units/L ALT (7-56) units/L Alkaline Phosphatase (35-129) units/L Total Creatine Kinase (30-135) units/L Troponin T (0.00-0.029) ng/mL Total Protein (6.3-8.2) g/dL Albumin (3.9-5) g/dL Albumin/Globulin Ratio % TSH 2.820 (0.270-4.200) mlU/mL Lab Results 11/16/21 11/16/21 11/16/21 Range/Units 08:45 08:45 08:45 WBC 4.9 (4.5-11.0) K/mm3 RBC 4.79 (3.65-5.03) M/mm3 Hgb 14.3 (10.1-14.3) gm/dl Hct 42.3 (30.3-42.9) % MCV 88 (79-97) fl MCH 30 (28-32) pg MCHC 34 (30-34) % RDW 12.2 L (13.2-15.2) % Plt Count 202 (140-440) K/mm3 Lymph % (Auto) 30.8 (13.4-35.0) % [place] % (Auto) 10.2 H (0.0-7.3) % Eos % (Auto) 0.0 (0.0-4.3) % Baso % (Auto) 2.6 H (0.0-1.8) % Lymph # (Auto) 1.5 (1.2-5.4) K/mm3 [place] # (Auto) 0.5 (0.0-0.8) K/mm3 Eos # (Auto) 0.0 (0.0-0.4) K/mm3 Baso # (Auto) 0.1 (0.0-0.1) K/mm3 Seg Neutrophils % 56.4 (40.0-70.0) % Seg Neutrophils # 2.8 (1.8-7.7) K/mm3 PT 13.4 (12.2-14.9) Sec. INR 0.92 (0.87-1.13) VBG pH (7.320-7.420) Sodium 132 L (137-145) mmol/L Potassium 3.9 (3.6-5.0) mmol/L Chloride 86.4 L (98-107) mmol/L Carbon Dioxide 29 (22-30) mmol/L Anion Gap 21 mmol/L BUN 24 H (7-17) mg/dL Creatinine 1.6 H (0.6-1.2) mg/dL Estimated GFR 39 ml/min BUN/Creatinine Ratio 15 % Glucose 461 H (65-100) mg/dL POC Glucose (70-105) mg/dL Calcium 10.9 H (8.4-10.2) mg/dL Magnesium 2.20 (1.7-2.3) mg/dL Total Bilirubin 1.00 (0.1-1.2) mg/dL AST 32 (5-40) units/L ALT 47 (7-56) units/L Alkaline Phosphatase 103 (35-129) units/L Total Creatine Kinase 59 (30-135) units/L Troponin T < 0.010 (0.00-0.029) ng/mL Total Protein 9.1 H (6.3-8.2) g/dL Albumin 4.6 (3.9-5) g/dL Albumin/Globulin Ratio 1.0 % TSH (0.270-4.200) mlU/mL 11/16/21 11/16/21 11/16/21 Range/Units 08:45 11:17 12:16 WBC (4.5-11.0) K/mm3 RBC (3.65-5.03) M/mm3 Hgb (10.1-14.3) gm/dl Hct (30.3-42.9) % MCV (79-97) fl MCH (28-32) pg MCHC (30-34) % RDW (13.2-15.2) % Plt Count (140-440) K/mm3 Lymph % (Auto) (13.4-35.0) % [place] % (Auto) (0.0-7.3) % Eos % (Auto) (0.0-4.3) % Baso % (Auto) (0.0-1.8) % Lymph # (Auto) (1.2-5.4) K/mm3 [place] # (Auto) (0.0-0.8) K/mm3 Eos # (Auto) (0.0-0.4) K/mm3 Baso # (Auto) (0.0-0.1) K/mm3 Seg Neutrophils % (40.0-70.0) % Seg Neutrophils # (1.8-7.7) K/mm3 PT (12.2-14.9) Sec. INR (0.87-1.13) VBG pH (7.320-7.420) Sodium (137-145) mmol/L Potassium (3.6-5.0) mmol/L Chloride (98-107) mmol/L Carbon Dioxide (22-30) mmol/L Anion Gap mmol/L BUN (7-17) mg/dL Creatinine (0.6-1.2) mg/dL Estimated GFR ml/min BUN/Creatinine Ratio % Glucose (65-100) mg/dL POC Glucose 350 H 206 H (70-105) mg/dL Calcium (8.4-10.2) mg/dL Magnesium (1.7-2.3) mg/dL Total Bilirubin (0.1-1.2) mg/dL AST (5-40) units/L ALT (7-56) units/L Alkaline Phosphatase (35-129) units/L Total Creatine Kinase (30-135) units/L Troponin T (0.00-0.029) ng/mL Total Protein (6.3-8.2) g/dL Albumin (3.9-5) g/dL Albumin/Globulin Ratio % TSH 2.820 (0.270-4.200) mlU/mL 11/16/21 11/16/21 Range/Units 12:30 12:30 WBC (4.5-11.0) K/mm3 RBC (3.65-5.03) M/mm3 Hgb (10.1-14.3) gm/dl Hct (30.3-42.9) % MCV (79-97) fl MCH (28-32) pg MCHC (30-34) % RDW (13.2-15.2) % Plt Count (140-440) K/mm3 Lymph % (Auto) (13.4-35.0) % [place] % (Auto) (0.0-7.3) % Eos % (Auto) (0.0-4.3) % Baso % (Auto) (0.0-1.8) % Lymph # (Auto) (1.2-5.4) K/mm3 [place] # (Auto) (0.0-0.8) K/mm3 Eos # (Auto) (0.0-0.4) K/mm3 Baso # (Auto) (0.0-0.1) K/mm3 Seg Neutrophils % (40.0-70.0) % Seg Neutrophils # (1.8-7.7) K/mm3 PT (12.2-14.9) Sec. INR (0.87-1.13) VBG pH 7.389 (7.320-7.420) Sodium 140 D (137-145) mmol/L Potassium 3.6 (3.6-5.0) mmol/L Chloride 98.8 (98-107) mmol/L Carbon Dioxide 26 (22-30) mmol/L Anion Gap 19 mmol/L BUN 20 H (7-17) mg/dL Creatinine 1.3 H (0.6-1.2) mg/dL Estimated GFR 50 ml/min BUN/Creatinine Ratio 15 % Glucose 175 H (65-100) mg/dL POC Glucose (70-105) mg/dL Calcium 9.9 (8.4-10.2) mg/dL Magnesium (1.7-2.3) mg/dL Total Bilirubin (0.1-1.2) mg/dL AST (5-40) units/L ALT (7-56) units/L Alkaline Phosphatase (35-129) units/L Total Creatine Kinase (30-135) units/L Troponin T (0.00-0.029) ng/mL Total Protein (6.3-8.2) g/dL Albumin (3.9-5) g/dL Albumin/Globulin Ratio % TSH (0.270-4.200) mlU/mL - EKG Data -: EKG Interpreted by [facility] EKG shows normal: sinus rhythm Rate: normal - EKG Data 11/16/21 10:31 The EKG is interpreted by myself at 06: 4 0 The EKG today appears to be unchanged from prior EKG from March 2021. Sinus rhythm, 74 bpm. Normal axis, normal P wave axis, QTC 4 4 6 ms, and poor R wave progression. Borderline left ventricular hypertrophy. Abnormal EKG. Not a STEMI. - Radiology Data Radiology results: pending, report reviewed, image reviewed CHEST 2 VIEWS INDICATION / CLINICAL INFORMATION: dyspnea covid sx. COMPARISON: 03/21/2021 FINDINGS: SUPPORT DEVICES: None. HEART / MEDIASTINUM: No significant abnormality. LUNGS / PLEURA: No significant pulmonary or pleural abnormality. No pneumothorax. ADDITIONAL FINDINGS: No significant additional findings. IMPRESSION: 1. No acute findings. Signer Name: Jeronimo Jimenes DO Signed: 11/16/2021 7:21 AM Workstation Name: [id number] Critical Care Time: Yes Critical care time in (mins) excluding proc time.: 35 Critical care attestation.: If time is entered above; I have spent that time in minutes in the direct care of this critically ill patient, excluding procedure time. ED Disposition Clinical Impression: Suspected COVID-19 virus infection, Hyperglycemia, Dehydration Disposition: 01 HOME / SELF CARE / HOMELESS Is pt being admited?: No Does the pt Need Aspirin: No Condition: Good Instructions: Dehydration, Adult, Hyperglycemia, [id number] Additional Instructions: Please drink at least 4 to 6 cups of water per day indefinitely. Exercise as physically tolerated. Consume plenty of fiber, vegetables, and lean protein as described. Avoid consumption of alcohol, tobacco, smoke products and sugar, simple carbohydrates, and processed foods. Patient most likely is a type II diabetic. It is strongly recommended that the patient pursue the aforementioned diet and lifestyle modifications. Failure to do so may result in worsening glycemic/sugar levels, and worsening type 2 diabetes. Long-term complications of diabetes include heart attack, stroke, blindness, and disability. Patient may also have COVID-19. Wash hands frequently, thoroughly and often, self isolate, mask, and have repeat outpatient COVID-19 testing within the next 2 to 3 days. Avoid the very elderly in the very young, and those who are immune compromised. Follow-up with a primary care doctor within the next 2 weeks. Please return to the emergency room right away with new pain, worsened pain, migration of pain, projectile vomiting, change in mental status, confusion, inability tolerate liquid feeds, new, worsened or different symptoms not present on the initial emergency room evaluation Patient may reference appropriate diabetic diet recommendations on the [employer] website. Referrals: [facility] [Provider Group] - 3-5 Days Forms: Work/School Release Form(ED)
--- NOTE | 2021-11-16 08:25 | XRay Report ---
CHEST 2 VIEWS INDICATION / CLINICAL INFORMATION: dyspnea covid sx. COMPARISON: 03/21/2021 FINDINGS: SUPPORT DEVICES: None. HEART / MEDIASTINUM: No significant abnormality. LUNGS / PLEURA: No significant pulmonary or pleural abnormality. No pneumothorax. ADDITIONAL FINDINGS: No significant additional findings. IMPRESSION: 1. No acute findings. Signer Name: Jeronimo Jimenes DO Signed: 11/16/2021 8:21 AM Workstation Name: [id number]
[2021-11-16 09:22] LABS: Basophils # (Auto) 0.1 K/mm3 (0.0-0.1); Basophils % (Auto) 2.6 % (0.0-1.8); Hematocrit 42.3 % (30.3-42.9); Hemoglobin 14.3 gm/dl (10.1-14.3); Lymphocytes # (Auto) 1.5 K/mm3 (1.2-5.4); Lymphocytes % (Auto) 30.8 % (13.4-35.0); Mean Corpuscular HGB Conc 34 % (30-34); Mean Corpuscular Volume 88 fl (79-97); Monocytes # (Auto) 0.5 K/mm3 (0.0-0.8); Monocytes % (Auto) 10.2 % (0.0-7.3); Platelet Count 202 K/mm3 (140-440); Red Blood Count 4.79 M/mm3 (3.65-5.03); Red Cell Distribution Width 12.2 % (13.2-15.2)
[2021-11-16 09:32] LABS: INR 0.92 (0.87-1.13)
[2021-11-16 09:38] LABS: Alanine Aminotransferase 47 units/L (7-56); Albumin 4.6 g/dL (3.9-5); BUN/Creatinine Ratio 15; Blood Urea Nitrogen 24 mg/dL (7-17); Calcium 10.9 mg/dL (8.4-10.2); Hemolysis Index 7
[2021-11-16] MEDS ORDERED: SODIUM CHLORIDE 0.9% 1000 ML 2,000 ML IV ONE (10:01)
[2021-11-16] MEDS ORDERED: INSULIN REGULAR, HUMAN 100 UNITS/1 ML IV ONE (10:01)
[2021-11-16] MEDS ORDERED: SODIUM CHLORIDE 0.9% 1000 ML 1,000 ML IV ONE (10:01)
[2021-11-16 13:16] LABS: Calcium 9.9 mg/dL (8.4-10.2)
--- NOTE | 2021-11-16 14:06 | Electrocardiograph Report ---
[facility] Test Date: 2021-11-16 Test Time: 06:40:51 Pat Name: MICHAEL SERNA Department: Room: Gender: F [employer] Fe[employer]: : 1955 Requested By: MANFRED KINCAID Order Number: [id number] Reading MD: Maximo Sheikh Measurements Intervals [place] Rate: 74 P: 49 OR: 178 QRS: 7 QRSD: 78 T: 57 QT: 403 QTc: 446 Interpretive Statements Sinus rhythm Consider anteroseptal infarct Compared to ECG 03/21/2021 11:44:19 Myocardial infarct finding now present Electronically Signed On 11-16-2021 14:06:28 EDT by Maximo Sheikh
[2021-11-16 14:11] VITALS: BP 143/90
== END 2021-11-16 14:11 | disposition home or self-care (01) ==
LOC: ED 06:32
DX: E86.0 Dehydration (principal); R73.9 Hyperglycemia, unspecified; R43.8 Other disturbances of smell and taste; Z20.822 Contact with and (suspected) exposure to COVID-19; I10 Essential (primary) hypertension; M19.90 Unspecified osteoarthritis, unspecified site; R01.1 Cardiac murmur, unspecified; Z98.890 Other specified postprocedural states
CPT/HCPCS: 36415; 71046; 80048; 80053; 82550; 82805; 82962; 83735; 84443; 84484; 85025; 85610; 93005; 96361; 96374; 99284; J7030; Q9967; J1815